=== PATIENT | female | born 1930 | race Caucasian/White ===

== ENCOUNTER 2017-08-08 13:51 | Observation (INO) | payer OTHER ==
[2017-08-08 14:12] VITALS: BMI 24.2
--- NOTE | 2017-08-08 14:27 | PDOC ---
Attending Attestation - Resident Resident Name: Jhonatan Gonzalez - ED Attending Attestation I have performed the following: I have examined & evaluated the patient, The case was reviewed & discussed with the resident, I agree w/resident's findings & plan, Exceptions are as noted <Kvng Mcintyre - Last Filed: 08/08/17 14:27> - HPI HPI: 08/08/17 15:49 The patient is a 86 year old female with a significant PMH of hypertension, hypothyroidism, afib( on xarelto) and lung ca who presents to the emergency department with 3 days of dizziness. The patient reports that she has been experiencing consistent dizziness to the extent that she feels like the room is spinning. She states that she was sitting in Urgent care when she began to feel as if she was swaying side to side and unable to maintain her balance well. The patient denies any feeling of lightheadedness or like she was going to pass out. The patient reports having some chest pain under her left breast yesterday but is now resolved. She denies any other symptoms. She denies any fever, chills, nausea, vomit, diarrhea, constipation or urinary symptoms. She denies any shortness of breath, palpitations, headache and dizziness. The patient denies any other complaints. PCP: Kai Surg: pneumonectomy Smoking: former, quit 16 years ago - Physicial Exam PE: 08/08/17 15:49 Vitals: Triage vital signs reviewed General Appearance: No acute distress, well nourished, well developed Head: Atraumatic Neck: Supple; No nuchal rigidity Chest Wall: Nontender Cardiac: Regular rate and rhythm, no murmurs, no rubs, no gallops Lungs: Clear to auscultation bilateral, good air movement bilaterally Abdomen: Soft, nondistended, normal bowel sounds, nontender to palpation Genitourinary: Rectal: Exam deferred Extremities: Full range of motion to all extremities, no cyanosis, clubbing, or edema Skin: Warm and dry, no rashes or lesions, no rash, no petechiae Neuro: AOX3; Cranial Nerves 2-12 grossly intact, Strength intact to all extremities, Sensation intact to all extremities, gait normal Psych: Normal mood, normal affect - Medical Decision Making 08/08/17 15:50 The patient is a 86 year old female with a significant PMH of hypertension, hypothyroidism, afib( on xarelto) and lung ca who presents to the emergency department with 3 days of dizziness. The patient will recieve, labs CT, and EKG. Documentation prepared by Tiffanie Galeano, acting as medical office worker for Kvng Mcintyre MD. <Tiffanie Galeano - Last Filed: 08/08/17 15:50>
[2017-08-08 14:31] LABS: BASO % 1.7 % (0-2.0); EOS % 1.4 % (0-4.5); HEMATOCRIT 35.7 % (32.4-45.2); HEMOGLOBIN 11.3 GM/dL (10.7-15.3); LYMPH % 15.8 % (8-40); MCH 29.2 pg (25.7-33.7); MCHC 31.6 g/dl (32.0-36.0); MEAN CELL VOLUME 92.5 fl (80-96); MEAN PLT VOLUME 9.1 fl (7.5-11.1); MONO % 9.5 % (3.8-10.2); NEUT % 71.6 % (42.8-82.8); PLATELET COUNT 240 K/MM3 (134-434); RBC 3.86 M/mm3 (3.60-5.2); RDW 16.9 % (11.6-15.6); WHITE BLOOD COUNT 7.1 K/mm3 (4.0-10.0)
--- NOTE | 2017-08-08 14:34 | PDOC ---
History of Present Illness - General Chief Complaint: Lightheaded Stated Complaint: IRREGULAR HEART BEAT Time Seen by Provider: 08/08/17 14:16 - History of Present Illness Initial Comments: 08/08/17 14:22 86 year old female hx of HTN, hypothyroidism, afib on xarelto, lung CA s/p pneumonectomy presents to the hospital with 3 days of dizziness. Patient states that she has been consistently dizzy, feeling like the room is spinning. States that when she was sitting at urgent care earlier today, she felt as though she was swaying from side to side, unable to maintain her balance very well. Denies feeling lightheaded or the feeling like she will pass out. States that she had some mild chest pain under her left breast yesterday, which has since resolved. Denies current chest pain, SOB, palpitations, nausea, vomiting, diarrhea, fevers , chills. Allergies: NKDA PCP: Siddhartha Surg: pneumonectomy Smoking: former, quit 16 years ago Alcohol: none Drugs: none Past History - Past Medical History Allergies/Adverse Reactions: Allergies Allergy/AdvReac Type Severity Reaction Status Date / Time No Known Drug Allergies Allergy Verified 11/06/14 17:56 Home Medications: Ambulatory Orders Levothyroxine [Synthroid -] 50 mcg PO DAILY 10/22/14 Losartan Potassium 50 mg PO HS 10/22/14 Multivit,Calc,Mins/Iron/Folic [Women's Daily Formula Caplet] 1 each PO DAILY 03/07 Alprazolam 0.25 mg PO HS PRN 08/08/17 Rivaroxaban [Xarelto] 1 each PO DAILY 08/08/17 Anemia: Yes (CHILD) Asthma: No Cancer: No (LUNG) Cardiac Disorders: Yes (afib) CVA: No COPD: No CHF: No Dementia: No Diabetes: No GI Disorders: No Disorders: No HTN: Yes Hypercholesterolemia: No Liver Disease: No Seizures: No Thyroid Disease: Yes - Surgical History Abdominal Surgery: No Appendectomy: No Cardiac Surgery: No Cholecystectomy: No Lung Surgery: Yes (CA REMOVAL) Neurologic Surgery: No Orthopedic Surgery: No - Suicide/Smoking/Psychosocial Hx Smoking Status: Yes Smoking History: Former smoker Have you smoked in the past 12 months: No Number of Cigarettes Smoked Daily: 0 If you are a former smoker, when did you quit?: 6 years ago Information on smoking cessation initiated: No Hx Alcohol Use: No Drug/Substance Use Hx: No Substance Use Type: None Hx Substance Use Treatment: No *Physical Exam - Vital Signs Last Vital Signs Temp Pulse Resp BP Pulse Ox 98.6 F 88 18 154/83 96 08/08/17 14:10 08/08/17 14:10 08/08/17 14:10 08/08/17 14:10 08/08/17 14:10 - Physical Exam Comments: 08/08/17 15:07 GENERAL: A&Ox3, no acute distress EYES: PERRLA, EOMI ENT: Moist mucus membranes NECK: No JVD LUNGS: CTA, no wheezes HEART: RRR, no murmurs ABDOMEN: Soft, nontender, BS present MUSCULOSKELETAL: No CVA Tenderness EXTREMITIES: 2+ pulses, no edema. NEUROLOGICAL: Cranial nerves II-XII intact. no dysmetria, slightly unsteady gait, motor strength 5/5 b/l ED Treatment Course - LABORATORY CBC & Chemistry Diagram: 08/08/17 14:18 08/08/17 14:18 - RADIOLOGY Radiology Studies Ordered: Category Date Time Status CXRPORT [CHEST X-RAY PORTABLE*] [RAD] Stat Radiology 08/08/17 14:06 Ordered Medical Decision Making - Medical Decision Making 08/08/17 14:34 86yo female with hx afib on xarelto, tiff ca s/p pneumonectomy, HTN, hypothyroidism presents with 3 days of vertigo DDx: BPV, labrynthitis, intracranial mass, cva -cbc, cmp, trop, cxr, ekg, TSH, head CT -Will give 500cc bolus -Meclizine 25 -will re-evaluate 08/08/17 16:21 -patient is still complaining of vertigo -will likely need obs admission, MRI and neuro evaluation *DC/Admit/Observation/Transfer Diagnosis at time of Disposition: Vertigo - Discharge Dispostion Condition at time of disposition: Stable Decision to Admit order: Yes - Referrals Referrals: Praneeth Carl MD [Primary Care Provider] - - Patient Instructions - Post Discharge Activity
[2017-08-08] MEDS ORDERED: MECLIZINE HCL 25 MG TABLET (FP) PO ONE (14:39)
[2017-08-08] MEDS ORDERED: SODIUM CHLORIDE 500 ML IV STA (14:40)
[2017-08-08] MEDS ORDERED: MECLIZINE HCL 25 MG TABLET (FP) ONE (14:43)
[2017-08-08 15:00] LABS: ALBUMIN 3.6 g/dl (3.4-5.0); ANION GAP 7 (8-16); BILIRUBIN,TOTAL 0.5 mg/dL (0.2-1.0); BLOOD UREA NITROGEN 21 mg/dL (7-18); CALCIUM 8.8 mg/dL (8.5-10.1); CHLORIDE 102 mmol/L (98-107); CO2 30 mmol/L (21-32); GLUCOSE,RANDOM 115 mg/dL (74-106); POTASSIUM 4.2 mmol/L (3.5-5.1); SGOT/AST 27 U/L (15-37); SGPT/ALT 22 U/L (12-78); SODIUM 139 mmol/L (136-145); TOT PROT 7.1 g/dl (6.4-8.2)
[2017-08-08 15:07] LABS: ALK PHOS 84 U/L (45-117)
[2017-08-08 16:35] LABS: URINE APPEARANCE CLEAR; URINE BILIRUBIN NEGATIVE (<2.0 mg/dL); URINE COLOR STRAW; URINE GLUCOSE (UA) NEGATIVE (NEGATIVE); URINE KETONE NEGATIVE (NEGATIVE); URINE LEUK ESTERASE 2+ (NEGATIVE); URINE NITRITE NEGATIVE (NEGATIVE); URINE PROTEIN NEGATIVE (NEGATIVE); URINE UROBILINOGEN NEGATIVE mg/dL (0.2-1.0)
[2017-08-08 17:02] LABS: EPI CELLS RARE /HPF (FEW); URINE CRYSTALS NONE SEEN /hpf (NONE SEEN); URINE MUCUS RARE
[2017-08-08] MEDS ORDERED: ALPRAZolam 0.25 MG TABLET PO PRN (18:08)
--- NOTE | 2017-08-08 18:08 | HP ---
Admitting History and Physical - Primary Care Physician PCP: Destinee Cobian - Admission History of Present Illness: 86 year old female hx of HTN, hypothyroidism, afib on xarelto, lung CA s/p pneumonectomy presents to the hospital with 3 days of dizziness. Patient states that she has been consistently dizzy, feeling like the room is spinning. States that when she was sitting at urgent care earlier today, she felt as though she was swaying from side to side, unable to maintain her balance very well. Denies feeling lightheaded or the feeling like she will pass out. States that she had some mild chest pain under her left breast yesterday, which has since resolved. Denies current chest pain, SOB, palpitations, nausea, vomiting, diarrhea, fevers , chills. - Past Medical History Cardiovascular: Yes: AFIB, HTN Endocrine: Yes: Hypothyroidism - Smoking History Smoking history: Former smoker Have you smoked in the past 12 months: No Aproximately how many cigarettes per day: 0 If you are a former smoker, when did you quit?: 6 years ago - Alcohol/Substance Use Hx Alcohol Use: No Home Medications - Allergies Allergies/Adverse Reactions: Allergies Allergy/AdvReac Type Severity Reaction Status Date / Time No Known Drug Allergies Allergy Verified 11/06/14 17:56 - Home Medications Home Medications: Ambulatory Orders Levothyroxine [Synthroid -] 50 mcg PO DAILY 10/22/14 Losartan Potassium 50 mg PO HS 10/22/14 Multivit,Calc,Mins/Iron/Folic [Women's Daily Formula Caplet] 1 each PO DAILY 03/07 Alprazolam 0.25 mg PO HS PRN 08/08/17 Rivaroxaban [Xarelto] 1 each PO DAILY 08/08/17 Physical Examination Vital Signs: Vital Signs Temperature 98.6 F 08/08/17 14:10 Pulse Rate 99 H 08/08/17 17:51 Respiratory Rate 20 08/08/17 17:51 Blood Pressure 161/89 08/08/17 17:58 O2 Sat by Pulse Oximetry (%) 96 08/08/17 17:51 Labs: CBC, BMP 08/08/17 14:18 08/08/17 14:18 Problem List - Problems (1) Vertigo Code(s): R42 - DIZZINESS AND GIDDINESS (2) HTN (hypertension) Code(s): I10 - ESSENTIAL (PRIMARY) HYPERTENSION Assessment/Plan Laboratory Tests 08/08/17 08/08/17 08/08/17 14:18 14:18 14:18 WBC 7.1 D RBC 3.86 Hgb 11.3 Hct 35.7 MCV 92.5 MCH 29.2 MCHC 31.6 L RDW 16.9 H Plt Count 240 MPV 9.1 Absolute Neuts (auto) 5.1 Neutrophils % 71.6 Lymphocytes % 15.8 Monocytes % 9.5 Eosinophils % 1.4 D Basophils % 1.7 D Nucleated RBC % 0 Sodium 139 Potassium 4.2 Chloride 102 Carbon Dioxide 30 Anion Gap 7 L BUN 21 H Creatinine 1.0 Creat Clearance w eGFR 52.33 Random Glucose 115 H Calcium 8.8 Total Bilirubin 0.5 AST 27 ALT 22 Alkaline Phosphatase 84 Creatine Kinase 95 Troponin I < 0.02 Total Protein 7.1 Albumin 3.6 TSH 2.02 Urine Color Urine Appearance Urine pH Ur Specific [place] Urine Protein Urine Glucose (UA) Urine Ketones Urine Blood Urine Nitrite Urine Bilirubin Urine Urobilinogen Ur Leukocyte Esterase Urine WBC (Auto) Urine RBC (Auto) Ur Epithelial Cells Urine Crystals Urine Mucus 08/08/17 14:24 WBC RBC Hgb Hct MCV MCH MCHC RDW Plt Count MPV Absolute Neuts (auto) Neutrophils % Lymphocytes % Monocytes % Eosinophils % Basophils % Nucleated RBC % Sodium Potassium Chloride Carbon Dioxide Anion Gap BUN Creatinine Creat Clearance w eGFR Random Glucose Calcium Total Bilirubin AST ALT Alkaline Phosphatase Creatine Kinase Troponin I Total Protein Albumin TSH Urine Color Straw Urine Appearance Clear Urine pH 7.0 Ur Specific [place] 1.004 Urine Protein Negative Urine Glucose (UA) Negative Urine Ketones Negative Urine Blood Negative Urine Nitrite Negative Urine Bilirubin Negative Urine Urobilinogen Negative Ur Leukocyte Esterase 2+ H Urine WBC (Auto) 47 Urine RBC (Auto) 0 Ur Epithelial Cells Rare Urine Crystals None seen Urine Mucus Rare
[2017-08-08] MEDS ORDERED: MECLIZINE HCL 25 MG TABLET (FP) PO SCH (18:15)
[2017-08-08] MEDS ORDERED: cefTRIAXone SODIUM 1 GM VIAL ONE (22:00)
[2017-08-08] MEDS ORDERED: LOSARTAN POTASSIUM 50 MG TABLET (FP) PO SCH (22:00)
[2017-08-08] MEDS ORDERED: DEXTROSE 5%-WATER - 50 ML IVPB ONE (22:00)
[2017-08-08] MEDS: MECLIZINE HCL 12.5 MG TABLET PO SCH (22:06)
[2017-08-08] MEDS: RIVAROXABAN 15 MG TABLET PO SCH (22:06)
[2017-08-08] MEDS: CEFTRIAXONE 1 GM in DEXTROSE 5%-WATER - 50 ML IVPB SCH (22:06)
[2017-08-09] MEDS: MECLIZINE HCL 12.5 MG TABLET PO SCH ×5 (00:12→23:21)
[2017-08-09] MEDS: LEVOTHYROXINE NA 50 MCG TABLET (FP) PO SCH (06:34)
[2017-08-09] MEDS ORDERED: amLODIPine BESYLATE 5 MG TABLET (FP) PO ONE (07:15)
[2017-08-09] MEDS ORDERED: cefTRIAXone SODIUM 1 GM VIAL ONE (09:24)
[2017-08-09] MEDS ORDERED: DEXTROSE 5%-WATER - 50 ML IVPB ONE (09:25)
--- NOTE | 2017-08-09 09:35 | CONSULT ---
Consult - text type - Consultation Consultation Note: Neurology History of Present Illness Chief Complaint: Lightheaded - History of Present Illness 86 year old female hx of HTN, hypothyroidism, afib on xarelto, lung CA s/p pneumonectomy presents to the hospital with 3 days of dizziness. Patient stated that she had been consistently dizzy, feeling like the room is spinning. Stated that when she was sitting at urgent care, she felt as though she was swaying from side to side, unable to maintain her balance very well. Denies feeling lightheaded or the feeling like she will pass out. She was admitted for further evaluation and reports feeling well this morning. Aside from recent dizzyness, no neurologic complaints. She completed CT head which I reviewed with her in detail and demostrated 1.6cm calcified frontal meningioma. She was not aware of this and therefore answered any questions she had. Informed her of it's benign nature and slow growth. Did mention surgical intervention as option but given lack of symptoms (which I don't believe this is cause for her dizzyness), she was not interested in pursuing unless "absolutely necessary". Advised that we can repeat imaging in 6-12 months. If further symptoms develop then further management can be considered. Allergies: NKDA PCP: Siddhartha Surg: pneumonectomy Smoking: former, quit 16 years ago Alcohol: none Drugs: none Past History - Past Medical History Allergies/Adverse Reactions: Allergies Allergy/AdvReac Type Severity Reaction Status Date / Time No Known Drug Allergies Allergy Verified 11/06/14 17:56 Home Medications: Ambulatory Orders Levothyroxine [Synthroid -] 50 mcg PO DAILY 10/22/14 Losartan Potassium 50 mg PO HS 10/22/14 Multivit,Calc,Mins/Iron/Folic [Women's Daily Formula Caplet] 1 each PO DAILY 03/07 Alprazolam 0.25 mg PO HS PRN 08/08/17 Rivaroxaban [Xarelto] 1 each PO DAILY 08/08/17 Anemia: Yes (CHILD) Asthma: No Cancer: No (LUNG) Cardiac Disorders: Yes (afib) CVA: No COPD: No CHF: No Dementia: No Diabetes: No GI Disorders: No Disorders: No HTN: Yes Hypercholesterolemia: No Liver Disease: No Seizures: No Thyroid Disease: Yes - Surgical History Abdominal Surgery: No Appendectomy: No Cardiac Surgery: No Cholecystectomy: No Lung Surgery: Yes (CA REMOVAL) Neurologic Surgery: No Orthopedic Surgery: No - Suicide/Smoking/Psychosocial Hx Smoking Status: Yes Smoking History: Former smoker Have you smoked in the past 12 months: No Number of Cigarettes Smoked Daily: 0 If you are a former smoker, when did you quit?: 6 years ago Information on smoking cessation initiated: No Hx Alcohol Use: No Drug/Substance Use Hx: No Substance Use Type: None Hx Substance Use Treatment: No *Physical Exam Vital Signs Period Temp Pulse Resp BP Sys/Smith Pulse Ox Last 24 Hr 97.4 F-98.6 F 88-122 18-20 154-180/83-110 95-96 GENERAL: A&Ox3, no acute distress EYES: PERRLA, EOMI ENT: Moist mucus membranes NECK: No JVD LUNGS: CTA, no wheezes HEART: RRR, no murmurs ABDOMEN: Soft, nontender, BS present MUSCULOSKELETAL: No CVA Tenderness EXTREMITIES: 2+ pulses, no edema. NEUROLOGICAL: Cranial nerves II-XII intact. Strength equal, sensory intact, finger to nose normal, gait deferred CBCD WBC 7.1 K/mm3 (4.0-10.0) D 08/08/17 14:18 RBC 3.86 M/mm3 (3.60-5.2) 08/08/17 14:18 Hgb 11.3 GM/dL (10.7-15.3) 08/08/17 14:18 Hct 35.7 % (32.4-45.2) 08/08/17 14:18 MCV 92.5 fl (80-96) 08/08/17 14:18 MCHC 31.6 g/dl (32.0-36.0) L 08/08/17 14:18 RDW 16.9 % (11.6-15.6) H 08/08/17 14:18 Plt Count 240 K/MM3 (134-434) 08/08/17 14:18 MPV 9.1 fl (7.5-11.1) 08/08/17 14:18 CMP Sodium 139 mmol/L (136-145) 08/08/17 14:18 Potassium 4.2 mmol/L (3.5-5.1) 08/08/17 14:18 Chloride 102 mmol/L (98-107) 08/08/17 14:18 Carbon Dioxide 30 mmol/L (21-32) 08/08/17 14:18 Anion Gap 7 (8-16) L 08/08/17 14:18 BUN 21 mg/dL (7-18) H 08/08/17 14:18 Creatinine 1.0 mg/dL (0.55-1.02) 08/08/17 14:18 Creat Clearance w eGFR 52.33 (>60) 08/08/17 14:18 Random Glucose 115 mg/dL (74-106) H 08/08/17 14:18 Calcium 8.8 mg/dL (8.5-10.1) 08/08/17 14:18 Total Bilirubin 0.5 mg/dL (0.2-1.0) 08/08/17 14:18 AST 27 U/L (15-37) 08/08/17 14:18 ALT 22 U/L (12-78) 08/08/17 14:18 Alkaline Phosphatase 84 U/L (45-117) 08/08/17 14:18 Total Protein 7.1 g/dl (6.4-8.2) 08/08/17 14:18 Albumin 3.6 g/dl (3.4-5.0) 08/08/17 14:18 CARDIAC ENZYMES Creatine Kinase 81 IU/L (26-192) 08/08/17 19:55 Troponin I < 0.02 ng/ml (0.00-0.05) 08/08/17 19:55 - RADIOLOGY CT head reviewed Medical Decision Making 86 year old female hx of HTN, hypothyroidism, afib on xarelto, lung CA s/p pneumonectomy presents to the hospital with 3 days of dizziness. Patient stated that she had been consistently dizzy, feeling like the room is spinning. Stated that when she was sitting at urgent care, she felt as though she was swaying from side to side, unable to maintain her balance very well. Denies feeling lightheaded or the feeling like she will pass out. She was admitted for further evaluation and reports feeling well this morning. Aside from recent dizzyness, no neurologic complaints. She completed CT head which I reviewed with her in detail and demostrated 1.6cm calcified frontal meningioma. She was not aware of this and therefore answered any questions she had. Informed her of it's benign nature and slow growth. Did mention surgical intervention as option but given lack of symptoms (which I don't believe this is cause for her dizzyness), she was not interested in pursuing unless "absolutely necessary". Advised that we can repeat imaging in 6-12 months. If further symptoms develop then further management can be considered. Can give Meclezine for dizzyness, if not effective , low dose valium can be considered. Monitor atrial fibrilation, maintain normal blood pressure range. Continue treatment for hypothyroidism. Adequate hydration, avoid quick head movements. Is improved, can follow up as outpatient.
[2017-08-09] MEDS: CEFTRIAXONE 1 GM in DEXTROSE 5%-WATER - 50 ML IVPB SCH (09:36)
--- NOTE | 2017-08-09 11:47 | CON.CARD ---
Consult Consult Specialty:: Cardiology (Covering Drs. Agosto/Jo Referred by:: Patient of Dr. Praneeth Carl Reason for Consultation:: Cardiac evaluation - History of Present Illness Chief Complaint: Dizziness History of Present Illness: Patient is an 86 year old female with underlying history of HTN, hypothyroidism , persistent AF on NOAC and history of lung CA s/p pneumonectomy who presents with intermittent dizziness. She denies any syncope or mechanical fall due to this. She denies chest pain, shortness of breath or palpitations. She denies paroxysmal nocturnal dyspnea or orthopnea. She denies fever or chills. She denies nausea, vomiting, diarrhea or abdominal pain. She denies headache. Neurology input was noted with presence of small frontal meningioma. - History Source History Provided By: Patient, Medical Record Limitations to Obtaining History: No Limitations - Past Medical History Cardio/Vascular: Yes: AFIB, HTN Endocrine: Yes: Hypothyroidism - Past Surgical History Past Surgical History: Yes: Hysterectomy Additional Surgical History: Joint surgery - Alcohol/Substance Use Hx Alcohol Use: No - Smoking History Smoking history: Former smoker Have you smoked in the past 12 months: No Aproximately how many cigarettes per day: 0 If you are a former smoker, when did you quit?: 6 years ago Home Medications - Allergies Allergies/Adverse Reactions: Allergies Allergy/AdvReac Type Severity Reaction Status Date / Time No Known Drug Allergies Allergy Verified 11/06/14 17:56 - Home Medications Home Medications: Ambulatory Orders Levothyroxine [Synthroid -] 50 mcg PO DAILY 10/22/14 Losartan Potassium 50 mg PO HS 10/22/14 Multivit,Calc,Mins/Iron/Folic [Women's Daily Formula Caplet] 1 each PO DAILY 03/07 Alprazolam 0.25 mg PO HS PRN 08/08/17 Rivaroxaban [Xarelto] 1 each PO DAILY 08/08/17 Family Disease History - Family Disease History Other Family History: Malignancy, but clear as to what kind Review of Systems - Review of Systems Constitutional: denies: Chills, Fever Cardiovascular: denies: Chest Pain, Palpitations, Shortness of Breath Respiratory: denies: Cough, Hemoptysis, Orthopnea, PND, SOB, SOB on Exertion Gastrointestinal: denies: Abdominal Pain, Melena Musculoskeletal: denies: Back Pain, Joint Pain Neurological: reports: Dizziness. denies: Headache, Seizure, Syncope Endocrine: denies: Intolerance to Cold, Intolerance to Heat, Unexplained Weight Gain, Unexplained Weight Loss Vital Signs: Vital Signs Temperature 97.6 F 08/09/17 06:00 Pulse Rate 122 H 08/09/17 06:00 Respiratory Rate 20 08/09/17 06:00 Blood Pressure 156/110 08/09/17 06:00 O2 Sat by Pulse Oximetry (%) 96 08/09/17 02:09 HENT: Yes: Atraumatic Neck: Yes: Supple Respiratory: Yes: CTA Bilaterally Gastrointestinal: Yes: Normal Bowel Sounds, Soft. No: Tenderness Cardiovascular: Yes: Pulse Irregular JVD: No Carotid Bruit: No PMI: Non-Displaced Heart Sounds: Yes: S1, S2. No: Gallop Edema: No - Other Data Labs, Other Data: CBC, BMP 08/08/17 14:18 08/08/17 14:18 Troponin, BNP 08/08/17 08/08/17 14:18 19:55 Troponin I < 0.02 < 0.02 Laboratory Results - last 24 hr 08/08/17 08/08/17 08/08/17 14:18 14:18 14:18 WBC 7.1 D RBC 3.86 Hgb 11.3 Hct 35.7 MCV 92.5 MCH 29.2 MCHC 31.6 L RDW 16.9 H Plt Count 240 MPV 9.1 Absolute Neuts (auto) 5.1 Neutrophils % 71.6 Lymphocytes % 15.8 Monocytes % 9.5 Eosinophils % 1.4 D Basophils % 1.7 D Nucleated RBC % 0 Sodium 139 Potassium 4.2 Chloride 102 Carbon Dioxide 30 Anion Gap 7 L BUN 21 H Creatinine 1.0 Creat Clearance w eGFR 52.33 Random Glucose 115 H Calcium 8.8 Total Bilirubin 0.5 AST 27 ALT 22 Alkaline Phosphatase 84 Creatine Kinase 95 Troponin I < 0.02 Total Protein 7.1 Albumin 3.6 TSH 2.02 Urine Color Urine Appearance Urine pH Ur Specific [place] Urine Protein Urine Glucose (UA) Urine Ketones Urine Blood Urine Nitrite Urine Bilirubin Urine Urobilinogen Ur Leukocyte Esterase Urine WBC (Auto) Urine RBC (Auto) Ur Epithelial Cells Urine Crystals Urine Mucus 08/08/17 08/08/17 14:24 19:55 WBC RBC Hgb Hct MCV MCH MCHC RDW Plt Count MPV Absolute Neuts (auto) Neutrophils % Lymphocytes % Monocytes % Eosinophils % Basophils % Nucleated RBC % Sodium Potassium Chloride Carbon Dioxide Anion Gap BUN Creatinine Creat Clearance w eGFR Random Glucose Calcium Total Bilirubin AST ALT Alkaline Phosphatase Creatine Kinase 81 Troponin I < 0.02 Total Protein Albumin TSH Urine Color Straw Urine Appearance Clear Urine pH 7.0 Ur Specific [place] 1.004 Urine Protein Negative Urine Glucose (UA) Negative Urine Ketones Negative Urine Blood Negative Urine Nitrite Negative Urine Bilirubin Negative Urine Urobilinogen Negative Ur Leukocyte Esterase 2+ H Urine WBC (Auto) 47 Urine RBC (Auto) 0 Ur Epithelial Cells Rare Urine Crystals None seen Urine Mucus Rare Atrial fibrillation Imaging - Results Chest X-ray: Report Reviewed (Elevated right hemidiaphragm) Cat Scan: Report Reviewed (Head CT 1.6 cm meningioma) EKG: Report Reviewed Problem List - Problems (1) Atrial fibrillation Code(s): I48.91 - UNSPECIFIED ATRIAL FIBRILLATION Qualifiers: Atrial fibrillation type: persistent Qualified Code(s): I48.1 - Persistent atrial fibrillation (2) Meningioma Code(s): D32.9 - BENIGN NEOPLASM OF MENINGES, UNSPECIFIED (3) Dizziness Code(s): R42 - DIZZINESS AND GIDDINESS (4) Hypothyroidism Code(s): E03.9 - HYPOTHYROIDISM, UNSPECIFIED Qualifiers: Hypothyroidism type: unspecified Qualified Code(s): E03.9 - Hypothyroidism , unspecified (5) HTN (hypertension) Code(s): I10 - ESSENTIAL (PRIMARY) HYPERTENSION Qualifiers: Hypertension type: essential hypertension Qualified Code(s): I10 - Essential (primary) hypertension (6) Vertigo Code(s): R42 - DIZZINESS AND GIDDINESS Assessment/Plan 1. Dizziness, etiology to be determined 2. Small Meningioma 3. Persistent AF with variable ventricular response [id number] score of at least 4 4. HTN 5. Hypothyrodism 6. History of lung CA s/p pneumonectomy PLAN: 1. Continue Losartan 2. Continue Xarelto 3. Neurology input noted. Meclizine PRN 4. Thyroid replacement therapy 5. Further cardiac evaluation can be followed as outpatient Patient was seen, examined and chart reviewed for total of [address] Agosto/Jo to resume care tomorrow Juan C Khalil MD
--- NOTE | 2017-08-09 15:13 | EKG ---
Test Reason : Blood Pressure : / mmHG Vent. Rate : 072 BPM Atrial Rate : 187 BPM P-R Int : 000 ms QRS Dur : 088 ms QT Int : 388 ms P-R-T Axes : 000 007 054 degrees QTc Int : 424 ms ATRIAL FIBRILLATION ABNORMAL ECG WHEN COMPARED WITH ECG OF 19-NOV-2013 15:29, ATRIAL FIBRILLATION HAS REPLACED SINUS RHYTHM NONSPECIFIC T WAVE ABNORMALITY NOW EVIDENT IN ANTERIOR LEADS Confirmed by MD Domenico, Maximo ([id number]) on 08/09/2017 3:13:36 PM Referred By: Confirmed By:Maximo Acuña MD
--- NOTE | 2017-08-09 15:20 | PN ---
Progress Note, Physician Chief Complaint: Ms Macedo says her vertigo is much improved. Still feeling a little weak. No cp , sob, n/v. - Current Medication List Current Medications: Active Medications Alprazolam (Xanax -) 0.25 mg PO HS PRN PRN Reason: sleep Ceftriaxone Sodium 1 gm/ (Dextrose) 50 mls @ 100 mls/hr IVPB DAILY [facility] Last Admin: 08/09/17 09:36 Dose: 100 mls/hr Levothyroxine Sodium (Synthroid -) 50 mcg PO DAILY@0700 [facility] Last Admin: 08/09/17 06:34 Dose: 50 mcg Losartan Potassium (Cozaar -) 50 mg PO HS [facility] Last Admin: 08/08/17 22:05 Dose: 50 mg Meclizine HCl (Antivert -) 12.5 mg PO Q6HPO [facility] Last Admin: 08/09/17 06:34 Dose: 12.5 mg Rivaroxaban (Xarelto -) 15 mg PO [facility] Last Admin: 08/08/17 22:06 Dose: 15 mg - Objective Vital Signs: Vital Signs Temperature 36.4 C 08/09/17 06:00 Pulse Rate 122 H 08/09/17 06:00 Respiratory Rate 20 08/09/17 06:00 Blood Pressure 156/110 08/09/17 06:00 O2 Sat by Pulse Oximetry (%) 96 08/09/17 02:09 Constitutional: Yes: Well Nourished, No Distress, Calm Cardiovascular: Yes: Pulse Irregular. No: Tachycardia, Gallop, Murmur, Rub Respiratory: Yes: Regular, CTA Bilaterally. No: Rales, Rhonchi, Wheezes Gastrointestinal: Yes: Normal Bowel Sounds, Soft. No: Distention, Tenderness Extremities: Yes: WNL Edema: No Labs: CBC, BMP 08/08/17 14:18 08/08/17 14:18 Problem List - Problems (1) Vertigo Assessment/Plan: -appreciate neurology and cardiology assistance -continue telemetry monitoring currently -continue meclizine prn -PT consulted, evaluate if ambulating safely Code(s): R42 - DIZZINESS AND GIDDINESS (2) Atrial fibrillation Assessment/Plan: -continue xarelto -heart rate elevated on VS, upon seeing was in the 80s -not on sam agent -will trial metoprolol 25mg bid for both HR and BP Code(s): I48.91 - UNSPECIFIED ATRIAL FIBRILLATION Qualifiers: Atrial fibrillation type: persistent Qualified Code(s): I48.1 - Persistent atrial fibrillation (3) HTN (hypertension) Assessment/Plan: -elevated -continue cozaar 50mg daily -add metoprolol 25mg bid -if still elevated, change cozaar to bid or 100mg daily Code(s): I10 - ESSENTIAL (PRIMARY) HYPERTENSION Qualifiers: Hypertension type: essential hypertension Qualified Code(s): I10 - Essential (primary) hypertension (4) Hypothyroidism Assessment/Plan: -continue synthroid Code(s): E03.9 - HYPOTHYROIDISM, UNSPECIFIED Qualifiers: Hypothyroidism type: unspecified Qualified Code(s): E03.9 - Hypothyroidism , unspecified (5) Meningioma Assessment/Plan: -chronic Code(s): D32.9 - BENIGN NEOPLASM OF MENINGES, UNSPECIFIED
[2017-08-09] MEDS ORDERED: LOSARTAN POTASSIUM 50 MG TABLET (FP) PO SCH ×3 (16:45→22:00)
--- NOTE | 2017-08-09 17:10 | CON.ID ---
Consult Consult Specialty:: infectious diseases Reason for Consultation:: r/o uti,infectious causes - History of Present Illness Chief Complaint: dizziness History of Present Illness: 86 year old female hx of HTN, hypothyroidism, afib on xarelto, lung CA s/p pneumonectomy presents to the hospital with 3 days of dizziness. according to the patient this has been going on for 3 days ,she also mentions that she thought that she had no balance and she went to the urgent care for that currently she is doing well and has no complaints patient is currently awake alert and oriented and got worked up and the ct scan shows old findings but nothing new including her xray chest - History Source History Provided By: Patient Limitations to Obtaining History: No Limitations - Past Medical History Cardio/Vascular: Yes: AFIB, HTN Endocrine: Yes: Hypothyroidism - Past Surgical History Past Surgical History: Yes: Hysterectomy Additional Surgical History: Joint surgery - Alcohol/Substance Use Hx Alcohol Use: No - Smoking History Smoking history: Former smoker Have you smoked in the past 12 months: No Aproximately how many cigarettes per day: 0 If you are a former smoker, when did you quit?: 6 years ago Home Medications - Allergies Allergies/Adverse Reactions: Allergies Allergy/AdvReac Type Severity Reaction Status Date / Time No Known Drug Allergies Allergy Verified 11/06/14 17:56 - Home Medications Home Medications: Ambulatory Orders Levothyroxine [Synthroid -] 50 mcg PO DAILY 10/22/14 Losartan Potassium 50 mg PO HS 10/22/14 Multivit,Calc,Mins/Iron/Folic [Women's Daily Formula Caplet] 1 each PO DAILY 03/07 Alprazolam 0.25 mg PO HS PRN 08/08/17 Rivaroxaban [Xarelto] 1 each PO DAILY 08/08/17 Family Disease History - Family Disease History Other Family History: Malignancy, but clear as to what kind Review of Systems - Review of Systems Constitutional: reports: No Symptoms Eyes: reports: No Symptoms HENT: reports: No Symptoms Neck: reports: No Symptoms Cardiovascular: reports: No Symptoms Respiratory: reports: No Symptoms Gastrointestinal: reports: No Symptoms Genitourinary: reports: No Symptoms Musculoskeletal: reports: No Symptoms Integumentary: reports: No Symptoms Endocrine: reports: No Symptoms Hematology/Lymphatic: reports: No Symptoms Psychiatric: reports: No Symptoms Physical Exam Vital Signs: Vital Signs Temperature 98.4 F 08/09/17 14:00 Pulse Rate 102 H 08/09/17 14:00 Respiratory Rate 20 08/09/17 06:00 Blood Pressure 159/91 08/09/17 14:00 O2 Sat by Pulse Oximetry (%) 96 08/09/17 02:09 Constitutional: Yes: Well Nourished, No Distress, Calm Eyes: Yes: Conjunctiva Clear Cardiovascular: Yes: Pulse Irregular, S1, S2 Respiratory: Yes: Regular, CTA Bilaterally Gastrointestinal: Yes: Normal Bowel Sounds Musculoskeletal: Yes: WNL Extremities: Yes: WNL Neurological: Yes: Alert, Oriented Psychiatric: Yes: Alert, Oriented Labs: CBC, BMP 08/08/17 14:18 08/08/17 14:18 Assessment/Plan after examining the patient I do not think there is any infectious cause in this patient could be due to cardiac or vertigo.Neurology input noted [facility] Problem List - Problems (1) Vertigo Code(s): R42 - DIZZINESS AND GIDDINESS (2) Atrial fibrillation Code(s): I48.91 - UNSPECIFIED ATRIAL FIBRILLATION Qualifiers: Atrial fibrillation type: persistent Qualified Code(s): I48.1 - Persistent atrial fibrillation (3) HTN (hypertension) Code(s): I10 - ESSENTIAL (PRIMARY) HYPERTENSION Qualifiers: Hypertension type: essential hypertension Qualified Code(s): I10 - Essential (primary) hypertension (4) Hypothyroidism Code(s): E03.9 - HYPOTHYROIDISM, UNSPECIFIED Qualifiers: Hypothyroidism type: unspecified Qualified Code(s): E03.9 - Hypothyroidism , unspecified (5) Meningioma Code(s): D32.9 - BENIGN NEOPLASM OF MENINGES, UNSPECIFIED plan continue current mgmt no abx await all cx report rest as per the team
[2017-08-09] MEDS: RIVAROXABAN 15 MG TABLET PO SCH (21:17)
[2017-08-09] MEDS: METOPROLOL TARTRATE 25 MG TABLET (FP) PO SCH (21:17)
[2017-08-10 05:44] VITALS: BP 158/91; PULSE 85; TEMP 97.8
[2017-08-10] MEDS: MECLIZINE HCL 12.5 MG TABLET PO SCH ×2 (06:15→11:47)
[2017-08-10] MEDS: LEVOTHYROXINE NA 50 MCG TABLET (FP) PO SCH (06:15)
[2017-08-10] MEDS ORDERED: cefTRIAXone SODIUM 1 GM VIAL ONE (08:42)
[2017-08-10] MEDS ORDERED: DEXTROSE 5%-WATER - 50 ML IVPB ONE (08:42)
[2017-08-10] MEDS: METOPROLOL TARTRATE 25 MG TABLET (FP) PO SCH (09:26)
--- NOTE | 2017-08-10 09:45 | PN ---
Progress Note (short form) - Note Progress Note: Neurology - History of Present Illness 86 year old female hx of HTN, hypothyroidism, afib on xarelto, lung CA s/p pneumonectomy presents to the hospital with 3 days of dizziness. Patient stated that she had been consistently dizzy, feeling like the room is spinning. Stated that when she was sitting at urgent care, she felt as though she was swaying from side to side, unable to maintain her balance very well. Denies feeling lightheaded or the feeling like she will pass out. She was admitted for further evaluation and reports feeling well this morning. Aside from recent dizzyness, no neurologic complaints. She completed CT head which I had reviewed with her in detail and demostrated 1.6cm calcified frontal meningioma. She was not aware of this and therefore answered any questions she had. Informed her of it's benign nature and slow growth. Did mention surgical intervention as option but given lack of symptoms (which I don't believe this is cause for her dizzyness), she was not interested in pursuing unless "absolutely necessary". Advised that we can repeat imaging in 6-12 months. If further symptoms develop then further management can be considered. Reports dizzyness is better today. Informed her that meclezine can be given as needed for vertigo though does not require at this time. Discussed adequate hydration and avoid rapid head movements. Patient reports understanding this can help with dizzyness/lightheadedness. Active Medications Alprazolam (Xanax -) 0.25 mg PO HS PRN PRN Reason: sleep Levothyroxine Sodium (Synthroid -) 50 mcg PO DAILY@0700 [facility] Last Admin: 08/10/17 06:15 Dose: 50 mcg Losartan Potassium (Cozaar -) 50 mg PO [facility] Last Admin: 08/09/17 17:20 Dose: 50 mg Meclizine HCl (Antivert -) 12.5 mg PO Q6HPO [facility] Last Admin: 08/10/17 06:15 Dose: 12.5 mg Metoprolol Tartrate (Lopressor -) 25 mg PO BID [facility] Last Admin: 08/10/17 09:26 Dose: Not Given Rivaroxaban (Xarelto -) 15 mg PO [facility] Last Admin: 08/09/17 21:17 Dose: 15 mg *Physical Exam Vital Signs Period Temp Pulse Resp BP Sys/Smith Pulse Ox Last 24 Hr 97.4 F-98.4 F 76-105 18-19 158-161/71-101 95-96 GENERAL: A&Ox3, no acute distress EYES: PERRLA, EOMI ENT: Moist mucus membranes NECK: No JVD LUNGS: CTA, no wheezes HEART: RRR, no murmurs ABDOMEN: Soft, nontender, BS present MUSCULOSKELETAL: No CVA Tenderness EXTREMITIES: 2+ pulses, no edema. NEUROLOGICAL: Cranial nerves II-XII intact. Strength equal, sensory intact, finger to nose normal, gait deferred CBCD WBC 7.1 K/mm3 (4.0-10.0) D 08/08/17 14:18 RBC 3.86 M/mm3 (3.60-5.2) 08/08/17 14:18 Hgb 11.3 GM/dL (10.7-15.3) 08/08/17 14:18 Hct 35.7 % (32.4-45.2) 08/08/17 14:18 MCV 92.5 fl (80-96) 08/08/17 14:18 MCHC 31.6 g/dl (32.0-36.0) L 08/08/17 14:18 RDW 16.9 % (11.6-15.6) H 08/08/17 14:18 Plt Count 240 K/MM3 (134-434) 08/08/17 14:18 MPV 9.1 fl (7.5-11.1) 08/08/17 14:18 CMP Sodium 139 mmol/L (136-145) 08/08/17 14:18 Potassium 4.2 mmol/L (3.5-5.1) 08/08/17 14:18 Chloride 102 mmol/L (98-107) 08/08/17 14:18 Carbon Dioxide 30 mmol/L (21-32) 08/08/17 14:18 Anion Gap 7 (8-16) L 08/08/17 14:18 BUN 21 mg/dL (7-18) H 08/08/17 14:18 Creatinine 1.0 mg/dL (0.55-1.02) 08/08/17 14:18 Creat Clearance w eGFR 52.33 (>60) 08/08/17 14:18 Random Glucose 115 mg/dL (74-106) H 08/08/17 14:18 Calcium 8.8 mg/dL (8.5-10.1) 08/08/17 14:18 Total Bilirubin 0.5 mg/dL (0.2-1.0) 08/08/17 14:18 AST 27 U/L (15-37) 08/08/17 14:18 ALT 22 U/L (12-78) 08/08/17 14:18 Alkaline Phosphatase 84 U/L (45-117) 08/08/17 14:18 Total Protein 7.1 g/dl (6.4-8.2) 08/08/17 14:18 Albumin 3.6 g/dl (3.4-5.0) 08/08/17 14:18 CARDIAC ENZYMES Creatine Kinase 215 IU/L (26-192) H 08/09/17 20:35 Troponin I < 0.02 ng/ml (0.00-0.05) 08/09/17 20:35 - RADIOLOGY CT head reviewed Medical Decision Making 86 year old female hx of HTN, hypothyroidism, afib on xarelto, lung CA s/p pneumonectomy presents to the hospital with 3 days of dizziness. Patient stated that she had been consistently dizzy, feeling like the room is spinning. Stated that when she was sitting at urgent care, she felt as though she was swaying from side to side, unable to maintain her balance very well. Denies feeling lightheaded or the feeling like she will pass out. She was admitted for further evaluation and reports feeling well this morning. Aside from recent minimal dizzyness, no neurologic complaints. She completed CT head which I reviewed with her in detail and demostrated 1.6cm calcified frontal meningioma. She was not aware of this and therefore answered any questions she had. Informed her of it's benign nature and slow growth. Did mention surgical intervention as option but given lack of symptoms (which I don't believe this is cause for her dizzyness), she was not interested in pursuing unless "absolutely necessary". Advised that we can repeat imaging in 6-12 months. If further symptoms develop then further management can be considered. On Meclezine for dizzyness, informed her about this. If not effective, low dose valium can be considered. Monitor atrial fibrilation, maintain normal blood pressure range. Continue treatment for hypothyroidism. Adequate hydration, avoid quick head movements. Neurologically stable, can follow up as outpatient.
--- NOTE | 2017-08-10 11:48 | PN ---
Progress Note (short form) - Note Progress Note: S: 86 year old female with history of hypertension, hypothyroidism, atrial fibrillation (on Xarelto), lung cancer s/p pneumonectomy Active Medications Alprazolam (Xanax -) 0.25 mg PO HS PRN PRN Reason: sleep Levothyroxine Sodium (Synthroid -) 50 mcg PO DAILY@0700 [facility] Last Admin: 08/10/17 06:15 Dose: 50 mcg Losartan Potassium (Cozaar -) 50 mg PO HS [facility] Last Admin: 08/09/17 17:20 Dose: 50 mg Meclizine HCl (Antivert -) 12.5 mg PO Q6HPO [facility] Last Admin: 08/10/17 06:15 Dose: 12.5 mg Metoprolol Tartrate (Lopressor -) 25 mg PO BID [facility] Last Admin: 08/10/17 09:26 Dose: Not Given Rivaroxaban (Xarelto -) 15 mg PO [facility] Last Admin: 08/09/17 21:17 Dose: 15 mg O: 86 year old female was in no acute distress. No pallor, cyanosis, clubbing, or jaundice. Last Vital Signs Temp Pulse Resp BP Pulse Ox 97.8 F 85 19 158/91 96 08/10/17 05:00 08/10/17 05:00 08/10/17 05:00 08/10/17 05:00 08/10/17 05:00 NECK: Supple, no JVD, negative HJR, carotids were equal and upstrokes were normal, no thyromegaly appreciated. HEART: PMI was in the 5th intercostal space, no heaves or thrills, S1 and S2 were normal. No murmurs or gallops were appreciated. LUNGS: Clear on auscultation bilaterally. ABDOMEN: Soft, nontender, no hepatosplenomegaly appreciated, and no palpable masses were felt. EXTREMITIES: No calf tenderness or dependent edema. Pulses are normal. CBC, BMP 08/08/17 14:18 08/08/17 14:18 Laboratory Results - last 24 hr 08/09/17 20:35 Creatine Kinase 215 H Creatine Kinase Index 1.6 CK-MB (CK-2) 3.44 Troponin I < 0.02 Impression: 1. Dizziness, etiology to be determined 2. Small Meningioma 3. Persistent AF with variable ventricular response [id number] score of at least 4 4. HTN 5. Hypothyrodism 6. History of lung CA s/p pneumonectomy Recommendations: 1. Continue Losartan 2. Continue Xarelto 3. Neurology input noted. Meclizine PRN 4. Thyroid replacement therapy 5. Further cardiac evaluation can be followed as outpatient Prognosis: Documentation prepared by Tahira Lopez, acting as a medical donation professional for Damian Thomas MD. Problem List - Problems (1) Atrial fibrillation Code(s): I48.91 - UNSPECIFIED ATRIAL FIBRILLATION Qualifiers: Atrial fibrillation type: persistent Qualified Code(s): I48.1 - Persistent atrial fibrillation (2) Dizziness Code(s): R42 - DIZZINESS AND GIDDINESS (3) HTN (hypertension) Code(s): I10 - ESSENTIAL (PRIMARY) HYPERTENSION Qualifiers: Hypertension type: essential hypertension Qualified Code(s): I10 - Essential (primary) hypertension (4) Hypothyroidism Code(s): E03.9 - HYPOTHYROIDISM, UNSPECIFIED Qualifiers: Hypothyroidism type: unspecified Qualified Code(s): E03.9 - Hypothyroidism , unspecified (5) Meningioma Code(s): D32.9 - BENIGN NEOPLASM OF MENINGES, UNSPECIFIED (6) Vertigo Code(s): R42 - DIZZINESS AND GIDDINESS
--- NOTE | 2017-08-10 14:37 | DS ---
Physical Examination Vital Signs: Vital Signs Temperature 36.6 C 08/10/17 05:00 Pulse Rate 85 08/10/17 05:00 Respiratory Rate 20 08/10/17 09:00 Blood Pressure 158/91 08/10/17 05:00 O2 Sat by Pulse Oximetry (%) 97 08/10/17 09:00 Labs: CBC, BMP 08/08/17 14:18 08/08/17 14:18 Discharge Summary Reason For Visit: VERTIGO Condition: Stable - Instructions Diet, Activity, Other Instructions: Resume previous diet. Ambulate with walker. Follow up with Dr Carl within 7 days. Referrals: Bob Prasad MD [Staff Physician] - Praneeth Carl MD [Primary Care Provider] - Disposition: HOME - Home Medications Comprehensive Discharge Medication List: Ambulatory Orders Levothyroxine [Synthroid -] 50 mcg PO DAILY 10/22/14 Losartan Potassium 50 mg PO HS 10/22/14 Multivit,Calc,Mins/Iron/Folic [Women's Daily Formula Caplet] 1 each PO DAILY 03/07 Alprazolam 0.25 mg PO HS PRN 08/08/17 Rivaroxaban [Xarelto] 1 each PO DAILY 08/08/17 Meclizine HCl 12.5 mg PO Q6H PRN #30 tablet 08/10/17 Metoprolol Tartrate [Lopressor -] 25 mg PO BID #60 tablet 08/10/17
== END 2017-08-10 13:19 | disposition home or self-care (01) ==
LOC: JER 13:51 → JERBED 17:29 → J8W 18:15 → J4W 19:14
PROVIDERS: ADMIT Internal Medicine; ATTEND Internal Medicine
PROC: 3E03329 Introduction of Other Anti-infective into Peripheral Vein, Percutaneous Approach (ICD-10-PCS; principal; 2017-08-08)
PROC: 3E0337Z Introduction of Electrolytic and Water Balance Substance into Peripheral Vein, Percutaneous Approach (ICD-10-PCS; 2017-08-08)
DX: R42 Dizziness and giddiness (principal); I10 Essential (primary) hypertension; E03.9 Hypothyroidism, unspecified; I48.91 Unspecified atrial fibrillation; D32.9 Benign neoplasm of meninges, unspecified; Z85.118 Personal history of other malignant neoplasm of bronchus and lung; Z87.891 Personal history of nicotine dependence; Z79.01 Long term (current) use of anticoagulants; Z90.2 Acquired absence of lung [part of]
CPT/HCPCS: 36415; 70450-TC; 71045-TC-FY; 80053; 81003; 81015; 82550; 82553; 84443; 84484; 85025; 87086; 93005; 93010; 96361; 96374; 97116-GP; 97161-GP; 99285-25; G0378

== ENCOUNTER 2017-11-21 16:56 | Inpatient (IN) | payer OTHER ==
--- NOTE | 2017-11-21 17:12 | PDOC ---
Rapid Medical Evaluation Time Seen by Provider: 11/21/17 17:08 Medical Evaluation: Allergies Allergy/AdvReac Type Severity Reaction Status Date / Time No Known Drug Allergies Allergy Verified 10/04/17 15:04 I have performed a brief in-person evaluation of this patient. The patient presents with a chief complaint of: anemic and SOB. just had blood work done with dr. hunt and he sent her here. Pt had 2/3 of right lung removed 20 years ago because of lung cancer Pertinent physical exam findings: patient is pale. o2 sat 95% on RA. Patient appears slightly SOB. I have ordered the following: EKG, labs The patient will proceed to the ED for further evaluation Discharge Disposition - Diagnosis Anemia Qualifiers: Anemia type: unspecified type Qualified Code(s): D64.9 - Anemia, unspecified - Referrals - Patient Instructions - Post Discharge Activity
[2017-11-21 17:27] VITALS: BMI 23.8
[2017-11-21 17:51] LABS: BASO % 0.7 % (0-2.0); EOS % 1.2 % (0-4.5); HEMATOCRIT 24.6 % (32.4-45.2); HEMOGLOBIN 7.5 GM/dL (10.7-15.3); LYMPH % 14.1 % (8-40); MCH 25.5 pg (25.7-33.7); MCHC 30.4 g/dl (32.0-36.0); MEAN CELL VOLUME 83.9 fl (80-96); MEAN PLT VOLUME 8.5 fl (7.5-11.1); PLATELET COUNT 395 K/MM3 (134-434); RBC 2.93 M/mm3 (3.60-5.2); RDW 21.2 % (11.6-15.6); WHITE BLOOD COUNT 7.8 K/mm3 (4.0-10.0)
[2017-11-21 17:52] LABS: ADD RBC MORPHOLOGY YES
[2017-11-21 18:04] LABS: INR 1.45 (0.83-1.09); PROTHROMBIN TIME (PATIENT) 17.2 SEC (9.7-13.0)
[2017-11-21 18:08] LABS: ALK PHOS 82 U/L (45-117); ANION GAP 6 MMOL/L (8-16); BILIRUBIN,TOTAL 0.5 mg/dL (0.2-1); BLOOD UREA NITROGEN 20 mg/dL (7-18); CALCIUM 8.7 mg/dL (8.5-10.1); CHLORIDE 106 mmol/L (98-107); CO2 29 mmol/L (21-32); GLUCOSE,RANDOM 99 mg/dL (74-106); POTASSIUM 4.2 mmol/L (3.5-5.1); SGOT/AST 22 U/L (15-37); SGPT/ALT 19 U/L (13-61); SODIUM 141 mmol/L (136-145); TOT PROT 6.9 g/dl (6.4-8.2)
--- NOTE | 2017-11-21 18:48 | PDOC ---
History of Present Illness - General Chief Complaint: Lightheaded Stated Complaint: Lightheaded Time Seen by Provider: 11/21/17 17:08 - History of Present Illness Initial Comments: The patient is a 87F w/ a history of GI bleed, HTN, a-fib who presents per Dr. Carl for evaluation of symptomatic anemia. The patient reports a history of anemia requiring blood transfusions; however, she states that the specific source has not been identified. She has had an EGD and colonoscopy which was significant for an ulcer that was clipped. She denies recent blood in her urine or stool. She was taken off of her Xarelto last week 2/2 her chronic bleeds 11/21/17 19:16 11/21/17 19:42 11/21/17 20:05 Past History - Past Medical History Allergies/Adverse Reactions: Allergies Allergy/AdvReac Type Severity Reaction Status Date / Time No Known Drug Allergies Allergy Verified 11/21/17 17:09 Home Medications: Ambulatory Orders Levothyroxine [Synthroid -] 50 mcg PO DAILY #0 tab 09/27/17 Losartan Potassium [Cozaar -] 50 mg PO DAILY #0 tab 09/27/17 Metoprolol Succinate [Toprol XL -] 50 mg PO BID tab.sr.24h 09/27/17 Pantoprazole Sodium [Protonix -] 40 mg PO BID 44 Days #88 tablet.ec 09/27/17 Anemia: Yes Asthma: No Cancer: No (LUNG) Cardiac Disorders: Yes (afib) CVA: No COPD: No CHF: No Dementia: No Diabetes: No GI Disorders: Yes (ULCER) Disorders: No HTN: Yes Hypercholesterolemia: No Liver Disease: No Seizures: No Thyroid Disease: Yes - Surgical History Abdominal Surgery: No Appendectomy: No Cardiac Surgery: No Cholecystectomy: No Lung Surgery: Yes (CA REMOVAL 2/3 right side) Neurologic Surgery: No Orthopedic Surgery: No - Immunization History Immunization Up to Date: Yes - Suicide/Smoking/Psychosocial Hx Smoking Status: Yes Smoking History: Former smoker Have you smoked in the past 12 months: No Number of Cigarettes Smoked Daily: 0 If you are a former smoker, when did you quit?: 1997 Information on smoking cessation initiated: No Hx Alcohol Use: No Drug/Substance Use Hx: No Substance Use Type: None Hx Substance Use Treatment: No Review of Systems - Review of Systems Able to Perform ROS?: Yes Comments:: GENERAL/CONSTITUTIONAL: No fever or chills HEAD, EYES, EARS, NOSE AND THROAT: No change in vision. No ear pain or discharge. No sore throat CARDIOVASCULAR: No chest pain RESPIRATORY: No cough, wheezing, or hemoptysis GASTROINTESTINAL: No nausea, vomiting, diarrhea or constipation GENITOURINARY: No dysuria, frequency, or change in urination MUSCULOSKELETAL: No joint or muscle swelling or pain. SKIN: No rash NEUROLOGIC: No headache, loss of consciousness, or change in strength/sensation ENDOCRINE: No increased thirst. No abnormal weight change HEMATOLOGIC/LYMPHATIC: +hx of anemia; denies history of blood clots ALLERGIC/IMMUNOLOGIC: No hives or skin allergy 11/21/17 20:08 Is the patient limited Montenegrin proficient: No *Physical Exam - Vital Signs Last Vital Signs Temp Pulse Resp BP Pulse Ox 98.1 F 89 22 H 112/92 95 11/21/17 17:09 11/21/17 17:09 11/21/17 17:09 11/21/17 17:09 11/21/17 17:09 - Physical Exam Comments: GENERAL: Awake, alert, and fully oriented, in no acute distress HEAD: No signs of trauma, normocephalic, atraumatic EYES: PERRL, EOMI, sclera anicteric, conjunctiva clear ENT: Hearing grossly normal, nares patent, oropharynx clear without exudates. Moist mucosa NECK: Normal ROM, supple LUNGS: No distress, speaks full sentences but becomes short of breath w/ prolonged speech, clear to auscultation bilaterally HEART: Regular rate and irregular rhythm, no murmurs appreciated, peripheral pulses normal and equal bilaterally ABDOMEN: Soft, nontender, normoactive bowel sounds. No guarding, no rebound EXTREMITIES : Normal inspection, Normal range of motion, no edema. No clubbing or cyanosis NEUROLOGICAL: Cranial nerves II through XII grossly intact. Normal speech, no focal sensorimotor deficits SKIN: Warm, Dry, pallor, normal turgor, no rashes or lesions noted 11/21/17 20:08 ED Treatment Course - LABORATORY CBC & Chemistry Diagram: 11/21/17 17:30 11/21/17 17:30 - ADDITIONAL ORDERS Additional order review: Laboratory Results 11/21/17 11/21/17 17:30 17:30 PT with INR 17.20 H INR 1.45 H Sodium 141 Potassium 4.2 Chloride 106 Carbon Dioxide 29 Anion Gap 6 L BUN 20 H Creatinine 1.0 Creat Clearance w eGFR 52.20 Random Glucose 99 Calcium 8.7 Total Bilirubin 0.5 AST 22 ALT 19 Alkaline Phosphatase 82 Creatine Kinase 31 Troponin I < 0.02 Total Protein 6.9 Albumin 3.0 L 11/21/17 17:30 RBC 2.93 L MCV 83.9 MCHC 30.4 L RDW 21.2 H MPV 8.5 Neutrophils % 71.0 D Lymphocytes % 14.1 D Monocytes % 13.0 H Eosinophils % 1.2 Basophils % 0.7 Medical Decision Making - Medical Decision Making The patient is a 87F who presents with symptomatic anemia including shortness of breath and generalized weakness ED course CMP, CBC, UA, T/S ECG Hgb 7.5 Will transfuse 2u pRBC Plan for obs admit for symptomatic anemia PCP: Dr. Carl 11/21/17 20:08 Patient pending CXR Receiving 1st u pRBC Dispo: Admit 11/21/17 21:31 *DC/Admit/Observation/Transfer Diagnosis at time of Disposition: Anemia Qualifiers: Anemia type: unspecified type Qualified Code(s): D64.9 - Anemia, unspecified HTN (hypertension) Qualifiers: Hypertension type: unspecified Qualified Code(s): I10 - Essential (primary) hypertension Atrial fibrillation Qualifiers: Atrial fibrillation type: unspecified Qualified Code(s): I48.91 - Unspecified atrial fibrillation - Discharge Dispostion Condition at time of disposition: Good Decision to Admit order: Yes - Referrals Referrals: Praneeth Carl MD [Primary Care Provider] - - Patient Instructions - Post Discharge Activity
--- NOTE | 2017-11-21 19:13 | PDOC ---
Attending Attestation - HPI HPI: 11/21/17 19:33 The patient is an 87 year old female with a past medical history of requiring blood transfusions, anemia, afib (on xarelto), lung carcinoma, hypothyroidism, hypertension, meningioma, and recent GI bleeds who presents to the emergency department for evaluation of generalized weakness. The patient reports a hemoglobin level of 7.5 this morning from the office of Dr. Carl, but notes her baseline is 8. Patient stopped taking xarelto last week. - Physicial Exam PE: Pale 87 y/o female in no acute distress head ncat neck supple oropharynx no exudates neck supple Heart A-fib. No gallops, murmurs, or rubs. Lungs scattered rhonchi abd soft,nontender ext no e/c/c, MAEx4 skin warm and dry,no rashes neuro A&Ox3,no gross focal neuro deficits <Bunny Trinidad - Last Filed: 11/21/17 20:48> - Resident Resident Name: Pedro Damon - ED Attending Attestation I have performed the following: I have examined & evaluated the patient, The case was reviewed & discussed with the resident, I agree w/resident's findings & plan, Exceptions are as noted - Medical Decision Making 11/21/17 21:55 pt admitted for blood transfusion cardiology is Dr Osorio xarelto stopped last week because of history of GI bleed and hemoglobin trending down PCP Dr Carl imp chronic afib,anemia <Lima Dawkins - Last Filed: 11/21/17 21:57> Attestations - Attestations Documentation prepared by Bunny Trinidad, acting as medical director for Lima Dawkins MD. <Bunny Trinidad - Last Filed: 11/21/17 20:48>
[2017-11-21 19:16] LABS: ANISOCYTOSIS 2+; MACROCYTOSIS 1+; OVALOCYTE 1+; PLATELET ESTIMATE ADEQUATE
--- NOTE | 2017-11-21 20:36 | HP ---
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 Who was sent in for abnormal lab value, and fatigue. 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) Heme/Onc: Yes: Anemia Musculoskeletal: Yes: Chronic low back pain (vertebral compresion fracture), Osteoarthritis Endocrine: Yes: Hypothyroidism - Past Surgical History Past Surgical History: Yes: Cataract Removal, Hysterectomy (transvaginal with sling), Tonsillectomy - Smoking History Smoking history: Former smoker Have you smoked in the past 12 months: No Aproximately how many cigarettes per day: 0 If you are a former smoker, when did you quit?: 1997 - Alcohol/Substance Use Hx Alcohol Use: No History of Substance Use: reports: None - Social History ADL: Independent 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 History of Recent Travel: No Home Medications - Allergies Allergies/Adverse Reactions: Allergies Allergy/AdvReac Type Severity Reaction Status Date / Time No Known Drug Allergies Allergy Verified 11/21/17 17:09 - Home Medications Home Medications: Ambulatory Orders Levothyroxine [Synthroid -] 50 mcg PO DAILY #0 tab 09/27/17 Losartan Potassium [Cozaar -] 50 mg PO DAILY #0 tab 09/27/17 Metoprolol Succinate [Toprol XL -] 50 mg PO BID tab.sr.24h 09/27/17 Pantoprazole Sodium [Protonix -] 40 mg PO BID 44 Days #88 tablet.ec 09/27/17 Family Disease History - Family Disease History Family Disease History: CA: Mother ( young of unknown cancer), Other: Father ( 71 natural causes) Review of Systems - Review of Systems Constitutional: reports: Malaise Physical Examination Vital Signs: Vital Signs Temperature 98.1 F 11/21/17 17:09 Pulse Rate 89 11/21/17 17:09 Respiratory Rate 22 H 11/21/17 17:09 Blood Pressure 112/92 11/21/17 17:09 O2 Sat by Pulse Oximetry (%) 95 11/21/17 17:09 Labs: CBC, BMP 11/21/17 17:30 11/21/17 17:30 Laboratory Results - last 24 hr 11/21/17 11/21/17 11/21/17 17:30 17:30 17:30 WBC 7.8 RBC 2.93 L Hgb 7.5 L Hct 24.6 L MCV 83.9 MCH 25.5 L MCHC 30.4 L RDW 21.2 H Plt Count 395 D MPV 8.5 Absolute Neuts (auto) 5.6 Neutrophils % 71.0 D Lymphocytes % 14.1 D Monocytes % 13.0 H Eosinophils % 1.2 Basophils % 0.7 Nucleated RBC % 0 Hypochromia 1+ Platelet Estimate Adequate Platelet Comment Polychromasia 1+ Poikilocytosis 1+ Anisocytosis 2+ Macrocytosis 1+ Ovalocytes 1+ PT with INR 17.20 H INR 1.45 H Sodium 141 Potassium 4.2 Chloride 106 Carbon Dioxide 29 Anion Gap 6 L BUN 20 H Creatinine 1.0 Creat Clearance w eGFR 52.20 Random Glucose 99 Calcium 8.7 Total Bilirubin 0.5 AST 22 ALT 19 Alkaline Phosphatase 82 Creatine Kinase 31 Troponin I < 0.02 Total Protein 6.9 Albumin 3.0 L Blood Type Antibody Screen Crossmatch 11/21/17 17:30 WBC RBC Hgb Hct MCV MCH MCHC RDW Plt Count MPV Absolute Neuts (auto) Neutrophils % Lymphocytes % Monocytes % Eosinophils % Basophils % Nucleated RBC % Hypochromia Platelet Estimate Platelet Comment Polychromasia Poikilocytosis Anisocytosis Macrocytosis Ovalocytes PT with INR INR Sodium Potassium Chloride Carbon Dioxide Anion Gap BUN Creatinine Creat Clearance w eGFR Random Glucose Calcium Total Bilirubin AST ALT Alkaline Phosphatase Creatine Kinase Troponin I Total Protein Albumin Blood Type A POSITIVE Antibody Screen Negative Crossmatch See Detail Imaging - Results Chest X-ray: Pending EKG: Pending Problem List - Problems (1) Symptomatic anemia Assessment/Plan: -hgb 7.5 (baseline 8-12) - ED ordered 2 units PRBCs - Stool Occult-pending - Will add on FE, TIBC and Ferritin to prior labs - Repeat CBC in am - Monitor vitals - Consider Heme consult outpatient Code(s): D64.9 - ANEMIA, UNSPECIFIED (2) Atrial fibrillation Assessment/Plan: - stable, rate controlled - EKG reviewed - Continue Metoprolol - [id number] - No current AC likely secondary to GIB and frequent falls hx- risks outweighs benefits Code(s): I48.91 - UNSPECIFIED ATRIAL FIBRILLATION Qualifiers: Atrial fibrillation type: unspecified Qualified Code(s): I48.91 - Unspecified atrial fibrillation (3) HTN (hypertension) Assessment/Plan: - stable - Monitor BP - Continue Metoprolol, Losartan - Monitor renal function Code(s): I10 - ESSENTIAL (PRIMARY) HYPERTENSION Qualifiers: Hypertension type: unspecified Qualified Code(s): I10 - Essential (primary ) hypertension (4) Hypothyroidism Assessment/Plan: - stable - Continue Levothyroxine - TSH in am Code(s): E03.9 - HYPOTHYROIDISM, UNSPECIFIED Qualifiers: (5) Duodenal ulcer Assessment/Plan: - stable - no active flare - Continue Pantoprazole Code(s): K26.9 - DUODENAL ULCER, UNSP ACUTE OR CHRONIC, W/O HEMOR OR PERF (6) DVT prophylaxis Assessment/Plan: - OOB - SCDs Code(s): [id number] - Assessment/Plan 87 y/o woman with PMHx of Anemia, Afib, HTN, HLD, PUD, Duodenal Ulcer 10/08/17, Hypothyroidism. Placed on Tele Observation for Symptomatic Anemia for further evaluation of their emergent condition. Plan: FEN - PO fluids as tolerated - Replete lytes prn - Low Na Diet Code Status: Full Code Dispo: Tele Observation Visit type - Emergency Visit Emergency Visit: Yes Care time: The patient presented to the Emergency Department on the above date and was hospitalized for further evaluation of their emergent condition. - New Patient This patient is new to me today: Yes Date on this admission: 11/21/17 - Critical Care Critical Care patient: No
[2017-11-22] MEDS: LEVOTHYROXINE NA 50 MCG TABLET (FP) PO SCH (06:40)
[2017-11-22 08:16] LABS: BASO % 0.9 % (0-2.0); EOS % 1.5 % (0-4.5); HEMATOCRIT 27.7 % (32.4-45.2); HEMOGLOBIN 8.7 GM/dL (10.7-15.3); LYMPH % 17.7 % (8-40); MCH 26.1 pg (25.7-33.7); MCHC 31.3 g/dl (32.0-36.0); MEAN CELL VOLUME 83.2 fl (80-96); MEAN PLT VOLUME 8.3 fl (7.5-11.1); MONO % 14.7 % (3.8-10.2); NEUT % 65.2 % (42.8-82.8); PLATELET COUNT 318 K/MM3 (134-434); RBC 3.32 M/mm3 (3.60-5.2); RDW 19.1 % (11.6-15.6); WHITE BLOOD COUNT 8.4 K/mm3 (4.0-10.0)
[2017-11-22 08:28] LABS: ANION GAP 11 MMOL/L (8-16); BLOOD UREA NITROGEN 19 mg/dL (7-18); CALCIUM 8.8 mg/dL (8.5-10.1); CHLORIDE 106 mmol/L (98-107); CO2 25 mmol/L (21-32); CREATININE 0.9 mg/dL (0.55-1.3); GLUCOSE,RANDOM 99 mg/dL (74-106); MAGNESIUM 2.2 mg/dL (1.8-2.4); PHOSPHOROUS 3.3 mg/dL (2.5-4.9); SODIUM 142 mmol/L (136-145)
[2017-11-22] MEDS ORDERED: FUROSEMIDE 40 MG/4 ML INJECTABLE VIAL IVPUSH ONE ×2 (09:33→14:36)
--- NOTE | 2017-11-22 09:59 | CONSULT ---
Consultation: REQUESTING PROVIDER: CONSULT REQUEST: We have been asked to medically evaluate this patient for Anemia. HISTORY OF PRESENT ILLNESS: 87 y/o F from [place] with a PMHx of anemia, Afib (no AC), HTN, HLD, COPD, lung Ca, Diverticulosis, Peptic Ulcer Disease, Duodenal Ulcer (09/26/17), Chronic Low Back Pain, Vertebral Compression fx, OA, Hypothyroidism. Hemoglobin level of 7.5 from the office of Dr. Carl, but notes her baseline is 8. Patient stopped taking xarelto last week. She has been feeling weak and lethargic for past few weeks. She denies hematuria, melena, hematocezia, or hemoptisis. Denies CP,VILLAGOMEZ, SOB, abdominal pain, nausea or vomiting. REVIEW OF SYSTEMS: CONSTITUTIONAL: generalized weakness Absent: fever, chills, diaphoresis, , malaise, loss of appetite, weight change HEENT: Absent: rhinorrhea, nasal congestion, throat pain, throat swelling, difficulty swallowing, mouth swelling, ear pain, eye pain, visual changes CARDIOVASCULAR: Absent: chest pain, syncope, palpitations, irregular heart rate, lightheadedness , peripheral edema RESPIRATORY: Absent: cough, shortness of breath, dyspnea with exertion, orthopnea, wheezing, stridor, hemoptysis GASTROINTESTINAL: Absent: abdominal pain, abdominal distension, nausea, vomiting, diarrhea, constipation, melena, hematochezia GENITOURINARY: Absent: dysuria, frequency, urgency, hesitancy, hematuria, flank pain, genital pain MUSCULOSKELETAL: Absent: myalgia, arthralgia, joint swelling, back pain, neck pain SKIN: pallor Absent: rash, itching, HEMATOLOGIC/IMMUNOLOGIC: Absent: easy bleeding, easy bruising, lymphadenopathy, frequent infections ENDOCRINE: Absent: unexplained weight gain, unexplained weight loss, heat intolerance, cold intolerance NEUROLOGIC: Absent: headache, focal weakness or paresthesias, dizziness, unsteady gait, seizure, mental status changes, bladder or bowel incontinence PSYCHIATRIC: Absent: anxiety, depression, suicidal or homicidal ideation, hallucinations. PHYSICAL EXAMINATION Vital Signs - 24 hr 11/21/17 11/21/17 11/21/17 17:09 22:30 22:45 Temperature 98.1 F 97.7 F 97.4 F L Pulse Rate 89 Pulse Rate [ 98 H 92 H Right] Respiratory 22 H 18 17 Rate Blood Pressure 112/92 Blood Pressure 148/68 153/69 [Right Arm] O2 Sat by Pulse 95 96 97 Oximetry (%) 11/22/17 11/22/17 11/22/17 00:41 04:08 04:38 Temperature 97.5 F L Pulse Rate 101 H Pulse Rate [ 72 Right] Respiratory 17 21 H Rate Blood Pressure 158/83 Blood Pressure 138/64 [Right Arm] O2 Sat by Pulse 98 95 Oximetry (%) 11/22/17 08:00 Temperature Pulse Rate Pulse Rate [ Right] Respiratory Rate Blood Pressure Blood Pressure [Right Arm] O2 Sat by Pulse 95 Oximetry (%) GENERAL: AAOx3, NAD HEAD: NCAT EYES: PERRLA, EOMI, sclera anicteric, conjunctiva clear. EARS, NOSE, THROAT: dry mucous membranes. NECK: Supple without lymphadenopathy, JVD, or masses. LUNGS: CTAB. No wheezes, and no crackles. No accessory muscle use. HEART: Irregularly irregular, normal S1 and S2 without murmur, rub or gallop. BREAST: No palpable masses, dimpling or retraction. ABDOMEN: Soft, NTND, NABS, no guarding, no rebound, no masses. No hepatomegaly or splenomegaly. MUSCULOSKELETAL: Normal range of motion at all joints. No bony deformities or tenderness. No CVA tenderness. UPPER EXTREMITIES: 2+ pulses, warm, well-perfused. No cyanosis. No clubbing. No peripheral edema. LOWER EXTREMITIES: 2+ pulses, warm, well-perfused. No calf tenderness. No peripheral edema. NEUROLOGICAL: Cranial nerves II-XII intact. Normal speech.slightly weaker on LLE 3/5 strength. sensation intact. PSYCHIATRIC: Cooperative. Good eye contact. Appropriate mood and affect. SKIN: intact. Laboratory Results - last 24 hr 11/21/17 11/21/17 11/21/17 17:30 17:30 17:30 WBC 7.8 RBC 2.93 L Hgb 7.5 L Hct 24.6 L MCV 83.9 MCH 25.5 L MCHC 30.4 L RDW 21.2 H Plt Count 395 D MPV 8.5 Absolute Neuts (auto) 5.6 Neutrophils % 71.0 D Lymphocytes % 14.1 D Monocytes % 13.0 H Eosinophils % 1.2 Basophils % 0.7 Nucleated RBC % 0 Hypochromia 1+ Platelet Estimate Adequate Platelet Comment Polychromasia 1+ Poikilocytosis 1+ Anisocytosis 2+ Macrocytosis 1+ Ovalocytes 1+ PT with INR 17.20 H INR 1.45 H Sodium 141 Potassium 4.2 Chloride 106 Carbon Dioxide 29 Anion Gap 6 L BUN 20 H Creatinine 1.0 Creat Clearance w eGFR 52.20 Random Glucose 99 Calcium 8.7 Phosphorus Magnesium Total Bilirubin 0.5 AST 22 ALT 19 Alkaline Phosphatase 82 Creatine Kinase 31 Troponin I < 0.02 Total Protein 6.9 Albumin 3.0 L Stool Occult Blood Blood Type Antibody Screen Crossmatch 11/21/17 11/21/17 11/22/17 17:30 23:33 07:29 WBC 8.4 RBC 3.32 L Hgb 8.7 L Hct 27.7 L MCV 83.2 MCH 26.1 MCHC 31.3 L RDW 19.1 H Plt Count 318 MPV 8.3 Absolute Neuts (auto) 5.5 Neutrophils % 65.2 Lymphocytes % 17.7 D Monocytes % 14.7 H Eosinophils % 1.5 Basophils % 0.9 Nucleated RBC % 0 Hypochromia Platelet Estimate Platelet Comment Polychromasia Poikilocytosis Anisocytosis Macrocytosis Ovalocytes PT with INR INR Sodium Potassium Chloride Carbon Dioxide Anion Gap BUN Creatinine Creat Clearance w eGFR Random Glucose Calcium Phosphorus Magnesium Total Bilirubin AST ALT Alkaline Phosphatase Creatine Kinase Troponin I Total Protein Albumin Stool Occult Blood Negative Blood Type A POSITIVE Antibody Screen Negative Crossmatch See Detail 11/22/17 07:29 WBC RBC Hgb Hct MCV MCH MCHC RDW Plt Count MPV Absolute Neuts (auto) Neutrophils % Lymphocytes % Monocytes % Eosinophils % Basophils % Nucleated RBC % Hypochromia Platelet Estimate Platelet Comment Polychromasia Poikilocytosis Anisocytosis Macrocytosis Ovalocytes PT with INR INR Sodium 142 Potassium 4.0 Chloride 106 Carbon Dioxide 25 Anion Gap 11 BUN 19 H Creatinine 0.9 Creat Clearance w eGFR 58.95 Random Glucose 99 Calcium 8.8 Phosphorus 3.3 Magnesium 2.2 Total Bilirubin AST ALT Alkaline Phosphatase Creatine Kinase Troponin I Total Protein Albumin Stool Occult Blood Blood Type Antibody Screen Crossmatch Active Medications Generic Name Dose Route Start Last Admin Trade Name Freq PRN Reason Stop Dose Admin Levothyroxine Sodium 50 mcg 11/22/17 07:00 11/22/17 06:40 Synthroid - PO 50 mcg DAILY@0700 ANGELA Administration Losartan Potassium 50 mg 11/22/17 10:00 Cozaar - PO DAILY ANGELA Metoprolol Succinate 50 mg 11/22/17 10:00 Toprol Xl - PO BID ANGELA Nystatin 1 applic 11/22/17 10:00 Mycostatin Cream - TP BID ANGELA Pantoprazole Sodium 40 mg 11/22/17 10:00 Protonix - PO BID ANGELA ASSESSMENT/PLAN: Dispo: We will continue to follow the patient. Thank you for this consultative opportunity. Problem List - Problems (1) Symptomatic anemia Assessment/Plan: Most likely 2/2 to acute blood loss given drop in Hct from 35-->20 * AC held as of one week previously on Xarelto. * Admitted for transfusion. -received 2 units with appropriate response. * GI consulted for possible endoscopy/colonoscopy. * Continue to monitor H/H (2) Atrial fibrillation Assessment/Plan: AC held because of possible GI bleed. * Seen by cardiology. * Have discussed possibility of watchman procedure. (3) HTN (hypertension) Assessment/Plan: Well controlled on current medication. * Losartan Potassium (Cozaar -) 50 mg PO DAILY * Metoprolol Succinate (Toprol Xl -) 50 mg PO BID * Lasix 20mg IV Visit type - Emergency Visit Emergency Visit: Yes ED Registration Date: 11/22/17 Care time: The patient presented to the Emergency Department on the above date and was hospitalized for further evaluation of their emergent condition. - New Patient This patient is new to me today: Yes Date on this admission: 11/22/17 - Critical Care Critical Care patient: No
[2017-11-22] MEDS: PANTOPRAZOLE 40 MG TABLET (FP) PO SCH ×2 (10:07→21:13)
[2017-11-22] MEDS: LOSARTAN POTASSIUM 50 MG TABLET (FP) PO SCH (10:07)
--- NOTE | 2017-11-22 10:42 | EKG ---
Test Reason : Blood Pressure : / mmHG Vent. Rate : 085 BPM Atrial Rate : 067 BPM P-R Int : 000 ms QRS Dur : 086 ms QT Int : 362 ms P-R-T Axes : 000 032 071 degrees QTc Int : 430 ms ATRIAL FIBRILLATION ABNORMAL ECG WHEN COMPARED WITH ECG OF 05-OCT-2017 09:03, NO SIGNIFICANT CHANGE WAS FOUND Confirmed by Anam Barraza MD ([id number]) on 11/22/2017 10:42:25 AM Referred By: Confirmed By:Anam Barraza MD
--- NOTE | 2017-11-22 11:16 | CON.CARD ---
Consult Consult Specialty:: Cardiology Referred by:: Jonathan Reason for Consultation:: afib - History of Present Illness Chief Complaint: anemia, fatigue History of Present Illness: 87F h/o anemia, afib, HTN, HLD, COPD, lung ca, diverticulosis, ulcer p/w anemia , fatigue. Had been on Xarelto for anemia, which was stopped last week. Was admitted 09/2017 for anemia as well, Xarelto was held at the time and now stopped. Hgb in ER 7.5, received 1 unit PRBC. EKG stable. Denies chest pain. has dyspnea on exertion with walking that is stable. feels tired. 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) ...: No Musculoskeletal: Yes: Chronic low back pain (vertebral compresion fracture), Osteoarthritis Endocrine: Yes: Hypothyroidism Additional Medical History: osteoporosis - Past Surgical History Past Surgical History: Yes: Cataract Removal, Hysterectomy (transvaginal with sling), Tonsillectomy - Alcohol/Substance Use Hx Alcohol Use: No History of Substance Use: reports: None - Smoking History Smoking history: Former smoker Have you smoked in the past 12 months: No Aproximately how many cigarettes per day: 0 If you are a former smoker, when did you quit?: 1997 - Social History Usual Living Arrangement: Alone ADL: Independent 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 History of Recent Travel: No Home Medications - Allergies Allergies/Adverse Reactions: Allergies Allergy/AdvReac Type Severity Reaction Status Date / Time No Known Drug Allergies Allergy Verified 11/21/17 17:09 - Home Medications Home Medications: Ambulatory Orders Levothyroxine [Synthroid -] 50 mcg PO DAILY #0 tab 09/27/17 Losartan Potassium [Cozaar -] 50 mg PO DAILY #0 tab 09/27/17 Metoprolol Succinate [Toprol XL -] 50 mg PO BID tab.sr.24h 09/27/17 Pantoprazole Sodium [Protonix -] 40 mg PO BID 44 Days #88 tablet.ec 09/27/17 Family Disease History - Family Disease History Family History: Unremarkable Family Disease History: CA: Mother ( young of unknown cancer), Other: Father ( 71 natural causes) Review of Systems - Review of Systems Constitutional: reports: Weakness Eyes: reports: No Symptoms HENT: reports: No Symptoms Neck: reports: No Symptoms Cardiovascular: reports: Shortness of Breath Respiratory: reports: No Symptoms Gastrointestinal: reports: No Symptoms Genitourinary: reports: No Symptoms Musculoskeletal: reports: No Symptoms Integumentary: reports: No Symptoms Neurological: reports: No Symptoms Endocrine: reports: No Symptoms Hematology/Lymphatic: reports: No Symptoms Vital Signs: Vital Signs Temperature 97.5 F L 11/22/17 04:08 Pulse Rate 101 H 11/22/17 04:08 Respiratory Rate 21 H 11/22/17 04:08 Blood Pressure 158/83 11/22/17 04:08 O2 Sat by Pulse Oximetry (%) 95 11/22/17 08:00 Constitutional: Yes: No Distress, Calm Eyes: Yes: Conjunctiva Clear, EOM Intact HENT: Yes: Atraumatic, Normocephalic Neck: Yes: Supple, Trachea Midline Respiratory: Yes: Regular, CTA Bilaterally Gastrointestinal: Yes: Normal Bowel Sounds, Soft Renal/: Yes: WNL Cardiovascular: Yes: Regular Rate and Rhythm JVD: No PMI: Non-Displaced Heart Sounds: Yes: S1, S2 Musculoskeletal: Yes: WNL Extremities: Yes: WNL Edema: No Peripheral Pulses WNL: Yes Peripheral Pulses: 2+ Left Doralis Pedis, 2+ Right Dorsalis Pedis Integumentary: Yes: WNL Neurological: Yes: Alert, Oriented ...Motor Strength: WNL Psychiatric: Yes: Alert, Oriented - Other Data Labs, Other Data: CBC, BMP 11/22/17 07:29 11/22/17 07:29 INR, PTT INR 1.45 (0.83-1.09) H 11/21/17 17:30 Troponin, BNP 11/21/17 17:30 Troponin I < 0.02 Troponin, BNP 11/21/17 17:30 Troponin I < 0.02 Assessment/Plan echo 10/2014: nl lv/rv, nl rvsp, mild lae, mod mac EKG: afib, no ischemic changes a/p: 86 f hx lung ca s/p resection, hld, htn, hypothyroid, copd, afib, here with anemia. sob, symptomatic anemia: -s/p prbcs, hgb 7.5->8.9 - Xarelto stopped due to anemia htn: -mildly elevated here -cont home meds, observe trend afib: -rate controlled on bb, continue - Xarelto stopped due to anemia, history of falls - patient had been considering Watchman device, defer further evaluation to outpatient, agree with stopping AC for now
[2017-11-22] MEDS: NYSTATIN 100,000 UNIT/GM TOPICAL CREAM 15 GM TUBE TP SCH ×2 (11:24→21:13)
--- NOTE | 2017-11-22 14:29 | PN ---
Progress Note, Physician Chief Complaint: Pt sitting in bed in no acute distress. Reports feeling slightly better after prbcs transfusion. Still mildly sob. Denies any chest pain, n/v/d - Current Medication List Current Medications: Active Medications Levothyroxine Sodium (Synthroid -) 50 mcg PO DAILY@0700 [facility] Last Admin: 11/22/17 06:40 Dose: 50 mcg Losartan Potassium (Cozaar -) 50 mg PO DAILY [facility] Last Admin: 11/22/17 10:07 Dose: 50 mg Metoprolol Succinate (Toprol Xl -) 50 mg PO BID [facility] Last Admin: 11/22/17 10:07 Dose: 50 mg Nystatin (Mycostatin Cream -) 1 applic TP BID [facility] Last Admin: 11/22/17 11:24 Dose: 1 applic Pantoprazole Sodium (Protonix -) 40 mg PO BID [facility] Last Admin: 11/22/17 10:07 Dose: 40 mg - Objective Vital Signs: Vital Signs Temperature 97.5 F L 11/22/17 14:15 Pulse Rate 105 H 11/22/17 14:15 Respiratory Rate 20 11/22/17 14:15 Blood Pressure 136/80 11/22/17 14:15 O2 Sat by Pulse Oximetry (%) 95 11/22/17 08:00 Constitutional: Yes: Well Nourished, No Distress, Calm Cardiovascular: Yes: Pulse Irregular Respiratory: Yes: WNL, Regular, CTA Bilaterally, On Nasal O2, SOB on Exertion. No: Accessory Muscle Use, Rales, Rhonchi, Tachypnea, Wheezes Gastrointestinal: Yes: WNL, Normal Bowel Sounds, Soft. No: Distention, Tenderness Genitourinary: Yes: WNL Edema: No Neurological: Yes: WNL, Alert, Oriented Psychiatric: Yes: WNL, Alert, Oriented Labs: CBC, BMP 11/22/17 07:29 11/22/17 07:29 INR, PTT INR 1.45 (0.83-1.09) H 11/21/17 17:30 Problem List - Problems (1) Symptomatic anemia Assessment/Plan: improving normocytic, hypochromic worsening sob/fatigue at admission hg/hct trend down to 7.5/24.6 from baseline egd/colonoscopy 09/2017 revealed healing postbulbar ulcer, gastric body and cecal polyp removed s/p 1 unit prbcs, 2nd unit today lasix post transfusion recheck cbc tomorrow am cardiology/hematology/GI following Code(s): D64.9 - ANEMIA, UNSPECIFIED (2) Acute blood loss anemia Assessment/Plan: as above Code(s): D62 - ACUTE POSTHEMORRHAGIC ANEMIA (3) Iron deficiency anemia due to chronic blood loss Assessment/Plan: outpt records- serum iron 12, tibc 398, ferritin 28 pt unable to tolerate po iron hematology consulted possible outpt iron transfusion Code(s): D50.0 - IRON DEFICIENCY ANEMIA SECONDARY TO BLOOD LOSS (CHRONIC) (4) Atrial fibrillation Assessment/Plan: controlled continue metoprolol AC contraindicated in the setting of acute anemia discuss AC/watchman's device with cardiology, PCP outpt cardiology following Code(s): I48.91 - UNSPECIFIED ATRIAL FIBRILLATION Qualifiers: Atrial fibrillation type: chronic Qualified Code(s): I48.2 - Chronic atrial fibrillation (5) HTN (hypertension) Assessment/Plan: controlled continue losartan Code(s): I10 - ESSENTIAL (PRIMARY) HYPERTENSION Qualifiers: Hypertension type: essential hypertension Qualified Code(s): I10 - Essential (primary) hypertension (6) Hypothyroidism Assessment/Plan: stable continue levothyroxine Code(s): E03.9 - HYPOTHYROIDISM, UNSPECIFIED Qualifiers:
--- NOTE | 2017-11-22 18:44 | CON.GI ---
Consult Consult Specialty:: Gastroenterology Referred by:: Dr Carl Reason for Consultation:: Progressive anemia - History of Present Illness Chief Complaint: Found to be anemic by Dr. Carl. Denies overt bleeding. History of Present Illness: 87F is admitted with Hb 7.5. She denies hematemesis, melena or hematochezia. No abdominal pain or GI problems. She had an EGD and a colonoscopy with al on which revealed a duodenal postbulbar ulcer and a false ( chronic gastritis) gastric body polyp. Colonoscopy led to the removal of a cecal adenoma and revealed moderate diverticulosis universally. Her ferritin was 8 in 10/08. I recently discussed her case with Dr. 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) ...: No Heme/Onc: Yes: Anemia Musculoskeletal: Yes: Chronic low back pain (vertebral compresion fracture), Osteoarthritis Endocrine: Yes: Hypothyroidism Additional Medical History: osteoporosis - Past Surgical History Past Surgical History: Yes: Cataract Removal, Hysterectomy (transvaginal with sling), Tonsillectomy - Alcohol/Substance Use Hx Alcohol Use: No History of Substance Use: reports: None - Smoking History Smoking history: Former smoker Have you smoked in the past 12 months: No Aproximately how many cigarettes per day: 0 If you are a former smoker, when did you quit?: 1997 - Social History Usual Living Arrangement: Alone ADL: Independent 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 Place of : [place] History of Recent Travel: No Home Medications - Allergies Allergies/Adverse Reactions: Allergies Allergy/AdvReac Type Severity Reaction Status Date / Time No Known Drug Allergies Allergy Verified 11/21/17 17:09 - Home Medications Home Medications: Ambulatory Orders Levothyroxine [Synthroid -] 50 mcg PO DAILY #0 tab 09/27/17 Losartan Potassium [Cozaar -] 50 mg PO DAILY #0 tab 08/07/18 Metoprolol Succinate [Toprol XL -] 50 mg PO BID tab.sr.24h 09/27/17 Pantoprazole Sodium [Protonix -] 40 mg PO BID 44 Days #88 tablet.ec 09/27/17 Family Disease History - Family Disease History Family Disease History: CA: Mother ( young of unknown cancer), Other: Father ( 71 natural causes) Review of Systems - Review of Systems Constitutional: reports: Weakness Eyes: reports: No Symptoms HENT: reports: No Symptoms Neck: reports: No Symptoms Cardiovascular: reports: No Symptoms Respiratory: reports: Exercise Intolerance Gastrointestinal: reports: No Symptoms Musculoskeletal: reports: Back Pain Physical Exam-GI Vital Signs: Vital Signs Temperature 97.5 F L 11/22/17 14:15 Pulse Rate 105 H 11/22/17 14:15 Respiratory Rate 20 11/22/17 14:15 Blood Pressure 136/80 11/22/17 14:15 O2 Sat by Pulse Oximetry (%) 95 11/22/17 08:00 CBC,CMP WBC 8.4 K/mm3 (4.0-10.0) 11/22/17 07:29 RBC 3.32 M/mm3 (3.60-5.2) L 11/22/17 07:29 Hgb 8.7 GM/dL (10.7-15.3) L 11/22/17 07:29 Hct 27.7 % (32.4-45.2) L 11/22/17 07:29 MCV 83.2 fl (80-96) 11/22/17 07:29 MCH 26.1 pg (25.7-33.7) 11/22/17 07: MCHC 31.3 g/dl (32.0-36.0) L 11/22/17 07:29 RDW 19.1 % (11.6-15.6) H 11/22/17 07:29 Plt Count 318 K/MM3 (134-434) 11/22/17 07:29 MPV 8.3 fl (7.5-11.1) 11/22/17 07:29 Absolute Neuts (auto) 5.5 K/mm3 (1.5-8.0) 11/22/17 07: Neutrophils % 65.2 % (42.8-82.8) 11/22/17 07:29 Lymphocytes % 17.7 % (8-40) D 11/22/17 07:29 Monocytes % 14.7 % (3.8-10.2) H 11/22/17 07:29 Eosinophils % 1.5 % (0-4.5) 11/22/17 07:29 Basophils % 0.9 % (0-2.0) 11/22/17 07:29 Nucleated RBC % 0 % (0-0) 11/22/17 07:29 Hypochromia 1+ 11/21/17 17:30 Platelet Estimate Adequate 11/21/17 17:30 Platelet Comment 11/21/17 17:30 Polychromasia 1+ 11/21/17 17:30 Poikilocytosis 1+ 11/21/17 17:30 Anisocytosis 2+ 11/21/17 17:30 Macrocytosis 1+ 11/21/17 17:30 Ovalocytes 1+ 11/21/17 17:30 Sodium 142 mmol/L (136-145) 11/22/17 07:29 Potassium 4.0 mmol/L (3.5-5.1) 11/22/17 07:29 Chloride 106 mmol/L (98-107) 11/22/17 07:29 Carbon Dioxide 25 mmol/L (21-32) 11/22/17 07:29 Anion Gap 11 MMOL/L (8-16) 11/22/17 07:29 BUN 19 mg/dL (7-18) H 11/22/17 07:29 Creatinine 0.9 mg/dL (0.55-1.3) 11/22/17 07:29 Creat Clearance w eGFR 58.95 (>60) 11/22/17 07:29 Random Glucose 99 mg/dL (74-106) 11/22/17 07:29 Calcium 8.8 mg/dL (8.5-10.1) 11/22/17 07:29 Phosphorus 3.3 mg/dL (2.5-4.9) 11/22/17 07:29 Magnesium 2.2 mg/dL (1.8-2.4) 11/22/17 07:29 Total Bilirubin 0.5 mg/dL (0.2-1) 11/21/17 17:30 AST 22 U/L (15-37) 11/21/17 17:30 ALT 19 U/L (13-61) 11/21/17 17:30 Alkaline Phosphatase 82 U/L (45-117) 11/21/17 17:30 Creatine Kinase 31 IU/L (26-192) 11/21/17 17:30 Troponin I < 0.02 ng/ml (0.00-0.05) 11/21/17 17:30 Total Protein 6.9 g/dl (6.4-8.2) 11/21/17 17:30 Albumin 3.0 g/dl (3.4-5.0) L 11/21/17 17:30 Current Medications Generic Name Dose Route Start Last Admin Trade Name Joselo PRN Reason Stop Dose Admin Levothyroxine Sodium 50 mcg 11/22/17 07:00 11/22/17 06:40 Synthroid - PO 50 mcg DAILY@0700 ANGELA Administration Losartan Potassium 50 mg 11/22/17 10:00 11/22/17 10:07 Cozaar - PO 50 mg DAILY ANGELA Administration Metoprolol Succinate 50 mg 11/22/17 10:00 11/22/17 10:07 Toprol Xl - PO 50 mg BID ANGELA Administration Nystatin 1 applic 11/22/17 10:00 11/22/17 11:24 Mycostatin Cream - TP 1 applic BID ANGELA Administration Pantoprazole Sodium 40 mg 11/22/17 10:00 11/22/17 10:07 Protonix - PO 40 mg BID ANGELA Administration Constitutional: Yes: No Distress Eyes: Yes: Conjunctiva Clear HENT: Yes: Normocephalic Neck: Yes: Trachea Midline Cardiovascular: Yes: Pulse Irregular Respiratory: Yes: CTA Bilaterally Gastrointestinal Inspection: Yes: WNL ...Auscultate: Yes: Normoactive Bowel Sounds ...Palpate: Yes: Soft, Other (nontender) ...Rectal Exam: Yes: Guaiac Negative (no masses, soft brown guaiac negative stool) Labs: CBC, BMP 11/22/17 07:29 11/22/17 07:29 INR, PTT INR 1.45 (0.83-1.09) H 11/21/17 17:30 Problem List - Problems (1) Anemia Assessment/Plan: Despite being guaiac negative given her progressive anemia and recent ulcer finding a repeat EGD and this time an enteroscopy have been advised. I have discussed the procedure in detail including informed her of the potential for such complications as perforation and bleeding. She has signed an informed consent. I will attempt to do it tomorrow. Continue PPI. I discussed the case with Dr Mitchell. Code(s): D64.9 - ANEMIA, UNSPECIFIED Qualifiers: Anemia type: unspecified type Qualified Code(s): D64.9 - Anemia, unspecified (2) Colon adenoma Code(s): D12.6 - BENIGN NEOPLASM OF COLON, UNSPECIFIED (3) Duodenal ulcer Code(s): K26.9 - DUODENAL ULCER, UNSP ACUTE OR CHRONIC, W/O HEMOR OR PERF (4) Iron deficiency anemia due to chronic blood loss Code(s): D50.0 - IRON DEFICIENCY ANEMIA SECONDARY TO BLOOD LOSS (CHRONIC) (5) Diverticula of colon Code(s): K57.30 - DVRTCLOS OF LG INT W/O PERFORATION OR ABSCESS W/O BLEEDING
--- NOTE | 2017-11-22 18:53 | PN ---
Teaching Attending Note Name of Resident: Geovany Alicea ATTENDING PHYSICIAN STATEMENT I saw and evaluated the patient. I reviewed the resident's note and discussed the case with the resident. I agree with the resident's findings and plan as documented. SUBJECTIVE: Patient seen and examined On 09/22 - Hct- 35% an with fall to 20% in 6 weeks. On 09/22 - ferritin 8.s. Picture is one of blood loss anemia. For GI assessment . Can give parenteral Fe++ after assessment. OBJECTIVE: ASSESSMENT AND PLAN:
[2017-11-22 20:24] LABS: EOS % 1.5 % (0-4.5); HEMATOCRIT 35.5 % (32.4-45.2); HEMOGLOBIN 11.2 GM/dL (10.7-15.3); LYMPH % 12.2 % (8-40); MCH 25.9 pg (25.7-33.7); MCHC 31.5 g/dl (32.0-36.0); MEAN CELL VOLUME 82.4 fl (80-96); MEAN PLT VOLUME 8.4 fl (7.5-11.1); MONO % 14.1 % (3.8-10.2); NEUT % 71.2 % (42.8-82.8); PLATELET COUNT 358 K/MM3 (134-434); RBC 4.31 M/mm3 (3.60-5.2); RDW 18.6 % (11.6-15.6); WHITE BLOOD COUNT 9.8 K/mm3 (4.0-10.0)
[2017-11-22] MEDS ORDERED: PT OWN MED DRAWER 7, Y5N ONE (21:12)
[2017-11-23] MEDS ORDERED: MELATONIN 1 MG TABLET PO PRN (00:41)
[2017-11-23] MEDS: LEVOTHYROXINE NA 50 MCG TABLET (FP) PO SCH (06:47)
[2017-11-23 08:02] LABS: BASO % 0.5 % (0-2.0); EOS % 1.6 % (0-4.5); HEMATOCRIT 35.7 % (32.4-45.2); HEMOGLOBIN 10.9 GM/dL (10.7-15.3); LYMPH % 10.5 % (8-40); MCH 25.4 pg (25.7-33.7); MCHC 30.6 g/dl (32.0-36.0); MEAN CELL VOLUME 83.1 fl (80-96); MEAN PLT VOLUME 8.5 fl (7.5-11.1); MONO % 13.7 % (3.8-10.2); NEUT % 73.7 % (42.8-82.8); PLATELET COUNT 332 K/MM3 (134-434); RDW 18.1 % (11.6-15.6); WHITE BLOOD COUNT 11.2 K/mm3 (4.0-10.0)
[2017-11-23 08:28] LABS: ANION GAP 11 MMOL/L (8-16); BLOOD UREA NITROGEN 18 mg/dL (7-18); CALCIUM 8.8 mg/dL (8.5-10.1); CHLORIDE 103 mmol/L (98-107); CO2 28 mmol/L (21-32); CREATININE 0.8 mg/dL (0.55-1.3); GLUCOSE,RANDOM 92 mg/dL (74-106); LDH 195 U/L (84-246); POTASSIUM 3.8 mmol/L (3.5-5.1); SODIUM 142 mmol/L (136-145)
--- NOTE | 2017-11-23 09:40 | PN ---
Progress Note (short form) - Note Progress Note: s: Current Medications Levothyroxine Sodium (Synthroid -) 50 mcg PO DAILY@0700 [facility] Last Admin: 11/23/17 06:47 Dose: 50 mcg Losartan Potassium (Cozaar -) 50 mg PO DAILY [facility] Last Admin: 11/22/17 10:07 Dose: 50 mg Melatonin (Melatonin) 3 mg PO HS PRN PRN Reason: INSOMNIA Metoprolol Succinate (Toprol Xl -) 50 mg PO BID [facility] Last Admin: 11/22/17 21:13 Dose: 50 mg Nystatin (Mycostatin Cream -) 1 applic TP BID [facility] Last Admin: 11/22/17 21:13 Dose: 1 applic Pantoprazole Sodium (Protonix -) 40 mg PO BID [facility] Last Admin: 11/22/17 21:13 Dose: 40 mg Vital Signs: Vital Signs Period Temp Pulse Resp BP Sys/Smith Pulse Ox Last 24 Hr 97.5 F-98.4 F 82-105 17-20 118-157/64-88 99 Constitutional: Yes: No Distress, Calm Eyes: Yes: Conjunctiva Clear, EOM Intact HENT: Yes: Atraumatic, Normocephalic Neck: Yes: Supple, Trachea Midline Respiratory: Yes: Regular, CTA Bilaterally Gastrointestinal: Yes: Normal Bowel Sounds, Soft Renal/: Yes: WNL Cardiovascular: Yes: Regular Rate and Rhythm JVD: No PMI: Non-Displaced Heart Sounds: Yes: S1, S2 Musculoskeletal: Yes: WNL Extremities: Yes: WNL Edema: No Peripheral Pulses WNL: Yes Peripheral Pulses: 2+ Left Doralis Pedis, 2+ Right Dorsalis Pedis Integumentary: Yes: WNL Neurological: Yes: Alert, Oriented ...Motor Strength: WNL Psychiatric: Yes: Alert, Oriented Assessment/Plan echo 10/2014: nl lv/rv, nl rvsp, mild lae, mod mac EKG: afib, no ischemic changes a/p: 86 f hx lung ca s/p resection, hld, htn, hypothyroid, copd, afib, here with anemia. sob, symptomatic anemia: -s/p prbcs, hgb 7.5->8.9 - Xarelto stopped due to anemia - GI consulted, EGD today htn: -mildly elevated here -cont home meds, observe trend afib: -rate controlled on bb, continue - Xarelto stopped due to anemia, history of falls - patient had been considering Watchman device, defer further evaluation to outpatient, agree with stopping AC for now
[2017-11-23] MEDS: LOSARTAN POTASSIUM 50 MG TABLET (FP) PO SCH (09:57)
[2017-11-23] MEDS: NYSTATIN 100,000 UNIT/GM TOPICAL CREAM 15 GM TUBE TP SCH (10:35)
[2017-11-23] MEDS: PANTOPRAZOLE 40 MG TABLET (FP) PO SCH (10:35)
--- NOTE | 2017-11-23 11:54 | PN ---
Progress Note, Physician - Current Medication List Current Medications: Active Medications Levothyroxine Sodium (Synthroid -) 50 mcg PO DAILY@0700 [facility] Last Admin: 11/23/17 06:47 Dose: 50 mcg Losartan Potassium (Cozaar -) 50 mg PO DAILY [facility] Last Admin: 11/23/17 09:57 Dose: 50 mg Melatonin (Melatonin) 3 mg PO HS PRN PRN Reason: INSOMNIA Metoprolol Succinate (Toprol Xl -) 50 mg PO BID [facility] Last Admin: 11/23/17 09:57 Dose: 50 mg Nystatin (Mycostatin Cream -) 1 applic TP BID [facility] Last Admin: 11/22/17 21:13 Dose: 1 applic Pantoprazole Sodium (Protonix -) 40 mg PO BID [facility] Last Admin: 11/22/17 21:13 Dose: 40 mg - Objective Vital Signs: Vital Signs Temperature 98.4 F 11/23/17 08:14 Pulse Rate 87 11/23/17 08:14 Respiratory Rate 18 11/23/17 08:14 Blood Pressure 135/75 11/23/17 08:14 O2 Sat by Pulse Oximetry (%) 95 11/23/17 09:00 Labs: CBC, BMP 11/23/17 06:30 11/23/17 06:30 INR, PTT INR 1.45 (0.83-1.09) H 11/21/17 17:30 Problem List - Problems (1) Symptomatic anemia Code(s): D64.9 - ANEMIA, UNSPECIFIED (2) Acute blood loss anemia Code(s): D62 - ACUTE POSTHEMORRHAGIC ANEMIA (3) Iron deficiency anemia due to chronic blood loss Code(s): D50.0 - IRON DEFICIENCY ANEMIA SECONDARY TO BLOOD LOSS (CHRONIC) (4) Atrial fibrillation Code(s): I48.91 - UNSPECIFIED ATRIAL FIBRILLATION Qualifiers: Atrial fibrillation type: chronic Qualified Code(s): I48.2 - Chronic atrial fibrillation (5) HTN (hypertension) Code(s): I10 - ESSENTIAL (PRIMARY) HYPERTENSION Qualifiers: Hypertension type: essential hypertension Qualified Code(s): I10 - Essential (primary) hypertension (6) Hypothyroidism Code(s): E03.9 - HYPOTHYROIDISM, UNSPECIFIED Qualifiers:
[2017-11-23 12:03] VITALS: TEMP 97.6
--- NOTE | 2017-11-23 12:31 | PN ---
Progress Note (short form) - Note Progress Note: GI Procedure NOte; Please see enteroscopy report. The ulcer has healed. An antral submucoal polyp was seen but is not the source of bleeding. Please refer for capsule endoscopy as an outpatient. Discussed EUS and EMR with Jill but she prefers to leave the submucosal polyp alone. No GI objections to discharge. Problem List - Problems (1) Anemia Code(s): D64.9 - ANEMIA, UNSPECIFIED Qualifiers: Anemia type: unspecified type Qualified Code(s): D64.9 - Anemia, unspecified (2) Colon adenoma Code(s): D12.6 - BENIGN NEOPLASM OF COLON, UNSPECIFIED (3) Duodenal ulcer Code(s): K26.9 - DUODENAL ULCER, UNSP ACUTE OR CHRONIC, W/O HEMOR OR PERF (4) Iron deficiency anemia due to chronic blood loss Code(s): D50.0 - IRON DEFICIENCY ANEMIA SECONDARY TO BLOOD LOSS (CHRONIC) (5) Diverticula of colon Code(s): K57.30 - DVRTCLOS OF LG INT W/O PERFORATION OR ABSCESS W/O BLEEDING
[2017-11-23 14:30] VITALS: BP 127/64; PULSE 92
--- NOTE | 2017-11-23 14:37 | DS ---
Physical Examination Vital Signs: Vital Signs Temperature 97.6 F 11/23/17 14:00 Pulse Rate 92 H 11/23/17 14:00 Respiratory Rate 20 11/23/17 14:00 Blood Pressure 127/64 11/23/17 14:00 O2 Sat by Pulse Oximetry (%) 98 11/23/17 12:38 Constitutional: Yes: Well Nourished, No Distress Cardiovascular: Yes: Regular Rate and Rhythm Respiratory: Yes: WNL, Regular, CTA Bilaterally. No: Rhonchi, SOB, Tachypnea, Wheezes Gastrointestinal: Yes: WNL, Normal Bowel Sounds, Soft. No: Distention, Tenderness Renal/: Yes: WNL Musculoskeletal: Yes: WNL Edema: No Neurological: Yes: WNL, Alert, Oriented Psychiatric: Yes: WNL, Alert, Oriented Labs: CBC, BMP 11/23/17 06:30 11/23/17 06:30 Discharge Summary Reason For Visit: ANEMIA,ATRIAL FIBRILIATION,HYPOTHYROIDISM Current Active Problems Anemia (Acute) DVT prophylaxis (Acute) Symptomatic anemia (Acute) Atrial fibrillation (Chronic) HTN (hypertension) (Chronic) Hospital Course: is a 87 year old female who was admitted for acute anemia. received 2 units prbcs, hg/hct stable. hx of gib in the past on xarelto which was held for a 1 week. s/p egd, no source of bleed. recommend capsule endoscopy outpt. iron panel outpt revealed iron deficiency 2/2 chronic blood loss. considering pt not able to tolerate po iron recommend outpt parenteral iron transfusions. pt has been cleared for discharge by GI. f/u as directed to discuss AC options, watchmans device and further plans. Condition: Good - Instructions Diet, Activity, Other Instructions: capsule endoscopy outpt iron transfusions outpt f/u as directed Referrals: Ezekiel Agosto MD [Staff Physician] - 1 Week Bright Infante MD [Staff Physician] - 2 Weeks Praneeth Carl MD [Primary Care Provider] - 1 Week Lester Mitchell MD [Staff Physician] - 1 Week Disposition: HOME - Home Medications Comprehensive Discharge Medication List: Ambulatory Orders Levothyroxine [Synthroid -] 50 mcg PO DAILY #0 tab 09/27/17 Losartan Potassium [Cozaar -] 50 mg PO DAILY #0 tab 09/27/17 Metoprolol Succinate [Toprol XL -] 50 mg PO BID tab.sr.24h 09/27/17 Pantoprazole Sodium [Protonix -] 40 mg PO BID 44 Days #88 tablet.ec 09/27/17
== END 2017-11-23 15:39 | disposition home or self-care (01) | DRG 812 ==
LOC: JER 16:56 → JERBED 20:11 → J6S 11-22 03:13 → OBSVTOIN 11-22 14:00
PROVIDERS: ADMIT Internal Medicine; ATTEND Internal Medicine
PROC: 30233N1 Transfusion of Nonautologous Red Blood Cells into Peripheral Vein, Percutaneous Approach (ICD-10-PCS; 2017-11-21)
PROC: 0DJ08ZZ Inspection of Upper Intestinal Tract, Via Natural or Artificial Opening Endoscopic (ICD-10-PCS; principal; 2017-11-23 11:00)
DX: D62 Acute posthemorrhagic anemia (principal); I10 Essential (primary) hypertension; Z87.891 Personal history of nicotine dependence; J44.9 Chronic obstructive pulmonary disease, unspecified; E78.5 Hyperlipidemia, unspecified; K57.90 Diverticulosis of intestine, part unspecified, without perforation or abscess without bleeding; E03.9 Hypothyroidism, unspecified; M54.5 Low back pain; Z85.118 Personal history of other malignant neoplasm of bronchus and lung; I48.2 Chronic atrial fibrillation; K44.9 Diaphragmatic hernia without obstruction or gangrene; K22.2 Esophageal obstruction; K31.9 Disease of stomach and duodenum, unspecified; K26.9 Duodenal ulcer, unspecified as acute or chronic, without hemorrhage or perforation
CPT/HCPCS: 36415; 36430; 71045-TC-FY; 80048; 80053; 82272; 82550; 83010; 83615; 83735; 84100; 84484; 85025; 85044; 85610; 86850; 86900; 86901; 86922; 93005; 93010; 97116-GP; 97161-GP; 99285-25; G0378; P9038; P9058

== ENCOUNTER 2017-12-05 07:32 | Day surgery (SDC) | payer OTHER ==
[2017-12-05] MEDS ORDERED: IRON SUCROSE INJECTION 200 MG in SODIUM CHLORIDE 100 ML IVPB ONE (10:00)
[2017-12-05 12:14] VITALS: TEMP 98.4
[2017-12-05 12:16] VITALS: BP 150/72
[2017-12-05 12:17] VITALS: PULSE 85
== END 2017-12-05 11:15 | disposition home or self-care (01) ==
LOC: JONCNONCHE 07:32 → J7W 09:56 → JONCNONCHE 11:15
PROVIDERS: ATTEND Internal Medicine Hematology & Oncology
PROC: 3E033GC Introduction of Other Therapeutic Substance into Peripheral Vein, Percutaneous Approach (ICD-10-PCS; principal; 2017-12-05)
DX: D50.9 Iron deficiency anemia, unspecified (principal)
CPT/HCPCS: 96365; J1756

== ENCOUNTER 2017-12-12 07:45 | Day surgery (SDC) | payer OTHER ==
[2017-12-12] MEDS ORDERED: IRON SUCROSE INJECTION 200 MG in SODIUM CHLORIDE 100 ML IVPB ONE (10:00)
[2017-12-12 15:13] VITALS: BP 142/88; PULSE 62; TEMP 97.4
== END 2017-12-12 14:20 | disposition home or self-care (01) ==
LOC: JONCNONCHE 07:45 → JONCCHEMO 07:45 → J7W 13:01 → JONCNONCHE 14:20
PROVIDERS: ATTEND Internal Medicine Hematology & Oncology
PROC: 3E033GC Introduction of Other Therapeutic Substance into Peripheral Vein, Percutaneous Approach (ICD-10-PCS; principal; 2017-12-12)
DX: D50.9 Iron deficiency anemia, unspecified (principal)
CPT/HCPCS: 96365; J1756

== ENCOUNTER 2017-12-19 07:33 | Day surgery (SDC) | payer OTHER ==
[2017-12-19] MEDS ORDERED: IRON SUCROSE INJECTION 200 MG in SODIUM CHLORIDE 100 ML IVPB ONE (10:00)
[2017-12-19 14:25] VITALS: TEMP 98
[2017-12-19 14:31] VITALS: BP 147/82; PULSE 60
== END 2017-12-19 13:45 | disposition home or self-care (01) ==
LOC: JONCCHEMO 07:33 → J7W 14:10
PROVIDERS: ATTEND Internal Medicine Hematology & Oncology
PROC: 3E033GC Introduction of Other Therapeutic Substance into Peripheral Vein, Percutaneous Approach (ICD-10-PCS; principal; 2017-12-19)
DX: D50.9 Iron deficiency anemia, unspecified (principal)
CPT/HCPCS: 96365; J1756

== ENCOUNTER 2017-12-26 07:18 | Day surgery (SDC) | payer OTHER ==
[2017-12-26] MEDS ORDERED: IRON SUCROSE INJECTION 200 MG in SODIUM CHLORIDE 100 ML IVPB ONE (10:00)
[2017-12-26 16:45] VITALS: TEMP 97.9
[2017-12-26 16:48] VITALS: BP 130/67; PULSE 80
== END 2017-12-26 14:10 | disposition home or self-care (01) ==
LOC: JONCCHEMO 07:18 → J7W 13:28 → JONCCHEMO 14:10
PROVIDERS: ATTEND Internal Medicine Hematology & Oncology
PROC: 3E033GC Introduction of Other Therapeutic Substance into Peripheral Vein, Percutaneous Approach (ICD-10-PCS; principal; 2017-12-26)
DX: D50.9 Iron deficiency anemia, unspecified (principal)
CPT/HCPCS: 96365; J1756

== ENCOUNTER 2018-02-27 06:01 | Day surgery (SDC) | payer OTHER ==
[2018-02-27] MEDS ORDERED: IRON SUCROSE INJECTION 200 MG in SODIUM CHLORIDE 100 ML IVPB ONE (12:00)
[2018-02-27 16:41] VITALS: TEMP 97.7
[2018-02-27 16:42] VITALS: BP 127/65; PULSE 81
== END 2018-02-27 14:10 | disposition home or self-care (01) ==
LOC: JONCNONCHE 06:01 → J7W 13:32 → JONCNONCHE 14:10
PROVIDERS: ATTEND Internal Medicine Hematology & Oncology
PROC: 3E033GC Introduction of Other Therapeutic Substance into Peripheral Vein, Percutaneous Approach (ICD-10-PCS; principal; 2018-02-27)
DX: D50.9 Iron deficiency anemia, unspecified (principal)
CPT/HCPCS: 96365; 96372; J1756

== ENCOUNTER 2018-03-06 14:21 | Day surgery (SDC) | payer OTHER ==
[2018-03-06] MEDS ORDERED: IRON SUCROSE INJECTION 200 MG in SODIUM CHLORIDE 100 ML IVPB ONE (14:45)
[2018-03-06 15:05] VITALS: TEMP 97.9
[2018-03-06 15:49] VITALS: BP 139/70; PULSE 72
== END 2018-03-06 15:50 | disposition home or self-care (01) ==
LOC: JONCNONCHE 14:21 → J7W 14:34 → JONCNONCHE 15:50
PROVIDERS: ATTEND Internal Medicine Hematology & Oncology
PROC: 3E033GC Introduction of Other Therapeutic Substance into Peripheral Vein, Percutaneous Approach (ICD-10-PCS; principal; 2018-03-06)
DX: D50.9 Iron deficiency anemia, unspecified (principal)
CPT/HCPCS: 96365; J1756

== ENCOUNTER 2018-03-20 06:40 | Day surgery (SDC) | payer OTHER ==
[2018-03-20] MEDS ORDERED: IRON SUCROSE INJECTION 200 MG in SODIUM CHLORIDE 100 ML IVPB ONE (10:00)
[2018-03-20 14:43] VITALS: BP 163/87; PULSE 94; TEMP 98.4
== END 2018-03-20 14:46 | disposition home or self-care (01) ==
LOC: JONCNONCHE 06:40 → J7W 13:03 → JONCNONCHE 14:46
PROVIDERS: ATTEND Internal Medicine Hematology & Oncology
PROC: 3E033GC Introduction of Other Therapeutic Substance into Peripheral Vein, Percutaneous Approach (ICD-10-PCS; principal; 2018-03-20)
DX: D50.9 Iron deficiency anemia, unspecified (principal)
CPT/HCPCS: 96365; J1756